=== PATIENT | male | born 1965 | race Caucasian/White ===

== ENCOUNTER 2018-08-02 17:37 | Inpatient (IN) | payer OTHER ==
[2018-08-02] MEDS ORDERED: Ondansetron HCl/PF 4 MG/2 ML Vial ONE (18:21)
[2018-08-02] MEDS ORDERED: Morphine 4 MG/ML VIAL ONE (18:21)
[2018-08-02 18:34] LABS: #Lymphocytes 0.5 thou/uL (1.20-3.40); #Monocytes 0.4 thou/uL (0.11-0.59); #Neutrophils 6.3 thou/uL (1.40-6.50); %Basophils 0.3 % (0.0-1.0); %Eosinophils 0.6 % (0.0-10.0); %Lymphocytes 6.3 % (21.0-51.0); %Monocytes 5.4 % (0.0-10.0); %Neutrophils 87.4 % (42.0-75.0); Hemoglobin 10.5 g/dL (14.0-18.0); Mean Corpuscular HGB CONC 32.7 g/dL (32.0-36.0); Mean Corpuscular Hemoglobin 30.3 pg (27.0-31.0); Mean Corpuscular Volume 92.8 fL (78.0-98.0); Mean Platelet Volume 7.6 fL (7.4-10.4); Platelet Count 116 thou/uL (130-400); RBC Distribution Width 12.6 % (11.5-14.5); Red Blood Cell (RBC) Count 3.47 mill/uL (4.70-6.10); White Blood Cell (WBC) Count 7.2 thou/uL (4.8-10.8)
[2018-08-02 19:04] LABS: ALT (SGPT) 17 U/L (8-55); AST (SGOT) 36 U/L (5-34); Alkaline Phosphatase 50 U/L (40-150); Anion Gap 22 mmol/L (10-20); BUN (Urea Nitrogen) 74 mg/dL (8.4-25.7); Bilirubin, Total 3.2 mg/dL (0.2-1.2); Calc. Creatinine Clearance 0 mL/min (70-130); Calcium 9.5 mg/dL (7.8-10.44); Carbon Dioxide 15 mmol/L (22-29); Chloride 97 mmol/L (98-107); Estimated GFR-MDRD 5; Globulin 5.4 g/dL (2.4-3.5); Glucose 135 mg/dL (70-105); Lipase 326 U/L (8-78); Potassium 5.8 mmol/L (3.5-5.1); Protein, Total 8.4 g/dL (6.0-8.3); Sodium 128 mmol/L (136-145)
--- NOTE | 2018-08-02 19:31 | PDOC.FPRHP ---
- History of Present Illness Chief Complaint: Abdominal Pain History of Present Illness: Mr Almazan is a 53yo male with pmh of Cirrhosis 2/2 Hep C and Alcohol abuse who presented to [facility] with 1 week hx of weakness, worsening tremors, abd pain and nausea/vomiting, there was concern for SBP vs hepatorenal syndrome so he was transferred to ED via EMS. Pt also endorses body aches. Pt follows with GI outpatient and has scheduled therapeutic paracentesis with the most recent being 07/29, they removed 6L. Prior to this his last paracentesis was 2 mo prior. Hx of drinking 1 pint of liquior per day but reports last drink was 14 days ago. Reports hx of withdrawal symptoms but no hx of seizures. Denies fever/ chills. He is accompanied by his friend who reports his mental status is at baseline but he seems much more fatigued than usual. ED Course: Morphine 6mg IV, Zofran 8mg IV - Allergies/Adverse Reactions Allergies Allergy/AdvReac Type Severity Reaction Status Date / Time No Known Drug Allergies Allergy Verified 08/02/18 22:23 - Home Medications Medication Instructions Recorded Confirmed Type Folic Acid 1 mg PO QAM 08/03/18 08/03/18 History Furosemide 40 mg PO QAM 08/03/18 08/03/18 History HYDROcodone/Ibuprofen [Ibudone] 1 tab PO Q6H PRN 08/03/18 08/03/18 History Lactulose 20 gm PO BID 08/03/18 08/03/18 History Ondansetron HCl [Zofran] 4 mg PO PRN PRN 08/03/18 08/03/18 History Pantoprazole Sodium 40 mg PO QAM 08/03/18 08/03/18 History Spironolactone 100 mg PO QAM 08/03/18 08/03/18 History hydrOXYzine HCl [Hydroxyzine HCl] 50 mg PO QID PRN 08/03/18 08/03/18 History - History PMHx: Alcohol Abuse, Tobacco Abuse, Cirrhosis 2/2 alcohol abuse & Hep C infection PSHx: None FHx: None Social: Currently smokes 1/2 pk/day, hx of 1 pint liquor per day, last drink 14 days ago, denies drug use - Review of Systems General: reports: weight/appetite/sleep changes, fatigue. denies: fever/chills Eyes: denies: eye pain, vision changes ENT: denies: nasal congestion, rhinorrhea Respiratory: denies: cough, congestion, shortness of breath Cardiovascular: reports: edema, orthopnea. denies: chest pain Gastrointestinal: reports: nausea, vomiting, abdominal pain Genitourinary: denies: dysuria, polyuria Skin: denies: rashes, lesions Musculoskeletal: reports: pain, stiffness Neurological: reports: weakness. denies: seizure - Vital signs BP: 152/91 HR: 87 RR: 17 Tmax: 98.1 Pox: 98% on RA Wt: 86.18kg - Physical Exam Constitutional: NAD -Constitutional: Appears malnourished, jaundiced, falling asleep while talking with him HEENT: PERRLA, oropharynx clear, other (mouth stained with peptobismol Scleral icterus) Neck: supple, trachea midline Heart: RRR, pulses present, other (1+ pitting edema to knees) Lungs: CTAB, no respiratory distress Abdomen: bowel sounds present, other (Abdomen mildy tender diffusely. Protuberant with fluid wave large umbilical hernia) Musculoskeletal: other (peripheral muscle atrophy) Neurological: no focal deficit Skin: capillary refill <2 seconds, other (jaundiced) Psychiatric: intact recent and remote memory, other (normal mood) FMR H&P: Results - Labs Result Diagrams: 08/03/18 04:17 08/03/18 04:17 Lab results: WBC 7.2 thou/uL (4.8-10.8) 08/02/18 18:13 Hgb 10.5 g/dL (14.0-18.0) L 08/02/18 18:13 Hct 32.2 % (42.0-52.0) L 08/02/18 18:13 MCV 92.8 fL (78.0-98.0) 08/02/18 18:13 Plt Count 116 thou/uL (130-400) L 08/02/18 18:13 Neutrophils % 87.4 % (42.0-75.0) H 08/02/18 18:13 Sodium 128 mmol/L (136-145) L 08/02/18 18:13 Potassium 5.8 mmol/L (3.5-5.1) H 08/02/18 18:13 Chloride 97 mmol/L (98-107) L 08/02/18 18:13 Carbon Dioxide 15 mmol/L (22-29) L 08/02/18 18:13 BUN 74 mg/dL (8.4-25.7) H 08/02/18 18:13 Creatinine 10.69 mg/dL (0.6-1.3) H 08/02/18 18:13 Glucose 135 mg/dL (70-105) H 08/02/18 18:13 Calcium 9.5 mg/dL (7.8-10.44) 08/02/18 18:13 Total Bilirubin 3.2 mg/dL (0.2-1.2) H 08/02/18 18:13 AST 36 U/L (5-34) H 08/02/18 18:13 ALT 17 U/L (8-55) 08/02/18 18:13 Alkaline Phosphatase 50 U/L (40-150) 08/02/18 18:13 Ammonia 76 umol/L (18-72) H 08/02/18 18:13 Serum Total Protein 8.4 g/dL (6.0-8.3) H 08/02/18 18:13 Albumin 3.0 g/dL (3.5-5.0) L 08/02/18 18:13 Lipase 326 U/L (8-78) H 08/02/18 18:13 FMR H&P: A/P - Problem List (1) Cirrhosis Current Visit: Yes Status: Acute Code(s): K74.60 - UNSPECIFIED CIRRHOSIS OF LIVER (2) Alcohol abuse Current Visit: Yes Status: Acute Code(s): F10.10 - ALCOHOL ABUSE, UNCOMPLICATED (3) Tobacco abuse Current Visit: Yes Status: Acute Code(s): Z72.0 - TOBACCO USE (4) Hepatorenal syndrome Current Visit: Yes Status: Acute Code(s): K76.7 - HEPATORENAL SYNDROME (5) Hyperkalemia Current Visit: Yes Status: Acute Code(s): E87.5 - HYPERKALEMIA (6) Normocytic anemia Current Visit: Yes Status: Acute Code(s): D64.9 - ANEMIA, UNSPECIFIED (7) Acute renal failure Current Visit: Yes Status: Acute (8) Pancreatitis Current Visit: Yes Status: Acute Code(s): K85.90 - ACUTE PANCREATITIS WITHOUT NECROSIS OR INFECTION, UNSP (9) Hyponatremia Current Visit: Yes Status: Acute Code(s): E87.1 - HYPO-OSMOLALITY AND HYPONATREMIA - Plan Acute Renal Failure - likely 2/2 hepatorenal syndrome - Nephrology, Dr Ritchie consulted from ED - Cr 10.69, BUN 74, GFR 5 - No record of baseline renal function - Strict I&O's - Consult GI in AM - Continue to monitor renal function with AM labs - Will admit to tele to monitor due to hyperkalemia Hyperkalemia - 5.8 - Ordered EKG - AM BMP Elevated Lipase - Pancreatitis vs 2/2 renal failure - 326 - Pt reports nausea and vomiting - Diet NPO, and treat symptomatically - Pain control with home Ibudone and Morphine PRN Cirrhosis 2/2 Alcohol abuse and Hep C - MELD: 32 - 52% 3mo mortality - Sees GI (Dr Cueto) outpt, last therapeutic paracentesis 07/29/18 - Consider therapeutic paracentesis tomorrow, low concern for SBP. No leukocytosis, pt afebrile and only mild abdominal pain that seems to be his baseline. - If pt develops worsening abd pain or becomes febrile overnight will preform diagnostic paracentesis and start antibiotics - GI consult in AM Elevated Ammonia - 76 - Unsure of pt's baseline mental status - Continue home lactulose - Will continue to monitor Normocytic Anemia - Hgb 10.5 - Will continue to monitor, can be followed outpatient Hyponatremia - 128 - Unknown baseline - Continue to monitor, AM CMP Alcohol Abuse - Reports last drink 14 days ago, no hx of w/d seizures in past - ASE protocol - Ativan PRN for withdrawal Tobacco Abuse - Encourage Cessation - Consider low dose Nicotine patch Code Status: DNR DVT ppx: SCDs FMR H&P: Upper Level - Pertinent history 53 y/o M w/ PMHx of Liver Cirrhosis 2/2 HCV and EtOH abuse presents from clinic for evaluation of abdominal pain, fatigue, nausea and vomiting over the past few days. Patient reportedly stopped drinking 14 days ago as well. Denies any hx of DTs. Denies any current withdrawal sxs. Endorses some minor abdominal pain. Denies any fevers, reports some chills. Patient with last paracentesis on 07/29 where 8L of fluid was removed. Patient reports he gets albumin with his paracentesis. Also w/ multiple medication changes at last GI visit 2 weeks ago ( Dr. Cueto). Has been taking lactulose 1-2x per day since then. - Pertinent findings BP 148/98 P 87 RR 18 Temp 98.1 DegF O2sat 99% on RA WBC 7.2 Hgb 10.5 Neut 87.4% Platelet 116 PT 18.6 PTT 25.9 INR 1.5 Na 128 K 5.8 Cl 97 CO2 15 BUN 74 Cr 10.69 Gluc 135 Uric acid 15.1 Bili - 3.4 NH4 - 76 Alb 3.0 Lipase - 326 Acute abdominal X-ray - NAD, ascites GEN: Jaundiced, NAD HEENT: Scleral icterus, MMM CARDS: RRR, 3/6 DREW LUSB, no rubs or gallops. PULM: CTA-B/l, no wheezes or rhonci GI: Soft, distention, fluid wave, mild tenderness to palpation diffusely, no rigidity, no guarding, BS x 4, umbilical hernia noted - Plan Date/Time: 08/02/181929 IJohan MD, have evaluated this patient and agree with findings/plan as outlined by international specialist resident. Pertinent changes/additions are listed here. 53 y/o M w/: 1) Acute Renal Failure likely 2/2 hepatorenal syndrome - Nephrology consulted from ER w/ patient started on IV albumin and D5W with NaHC03- - Will touch base with GI Dr. Cueto in the AM to see if he has lab work from his clinic to gauge patients baseline renal function as we have no current record of this - Will continue to monitor renal function w/ serial BMPs for improvement - Consult GI in the AM for further recommendations - No current hypotension noted - Monitor urine output w/ strict I/Os 2) Hyperkalemia 2/2 #1 - Patient given kayexalate per nephrology - K+ <6, will obtain EKG to r/o acute changes in setting of this - Will repeat in AM to re-eval 3) Elevated Lipase (pancreatitis vs renal failure) - Possibly elevated in setting of #1, however patient does have clinical symptoms suggestive of pancreatitis w/ elevation of his lipase on lab work - Will keep NPO for bowel rest and cont. w/ IV fluids per nephrology - PRN IV morphine for pain control 4) Liver Cirrhosis 2/2 HCV and EtOH abuse - MELD score of 32 based on todays labs giving patient a 52.6% 3 month estimated mortality - He has been getting therapeutic paracentesis w/ GI Dr. Cueto w/ last done on 07/29 and scheduled again next month - Patient has re-accumulated a large portion of the 6L which was removed at this time - Will plan to consult GI for further recommendations and possible paracentesis in the AM - Low suspicion for SBP at this time. Will defer diagnostic paracentesis to GI in the AM if they feel this is indicated. If patient develops leukocytosis, fever, or worsening abdominal pain will start on Rocephin for coverage and obtain ascetic fluid for analysis - Cont. w/ outpatient regimen w/ lactulose in setting of mildly elevated Ammonia on labs 5) Hx of EtOH abuse - Reported last drink 2 weeks ago w/ no current sxs of withdrawal - Will place on SHANTHI protocol to monitor CODE STATUS: DNR LOS: >2 midnights Diet: NPO Attending Addendum - Attending Addendum Date/Time: 08/03/18 1320 I personally evaluated the patient and discussed the management with Dr. Barreto. I agree with the History, Examination, Assessment and Plan documented above with any addition or exceptions noted below Briefly this is a 53 yo male with h/ o cirrhosis secondary to chronic Hep C and alcohol abuse sent from clinic due to increased lethargy and confusion. Also some h/o recent N/V. Denies any diarrhea, constipation. Minimal abdominal pain. denies any fever/chills. PMH/PSH /Meds/SH reviewed and agree with resident's documentation. Afebrile VSS. Exam repeated by me and agree with resident's findings. Labs: WBC= 7.2, H/H 10.5/ 32.2 -> 8.5/25.2, Plt= 92, GE=529, K=8.5 -> 5.1, Cl=97 CO2=19, BUN/Cr= 77/10.7, U/A-negative, NH4=78. A/P: 1) Hepatorenal syndrome- nephrology consulted and appreciate assitance; continue bicarb drip; monitor I/Os. Will notify patient's GI physician of admission and situation. 2) Encephalopathy- most likely combination of uremia and hepatic cause- continue lactulose and bicarb. Poor prognosis with development of renal failure. Will discuss with consultants/ patient regarding palliative care consult.
[2018-08-02 20:14] LABS: INR-International Normal Ratio 1.5; PTT 35.9 SEC (22.9-36.1); Prothrombin Time 18.6 SEC (12.0-14.7)
--- NOTE | 2018-08-02 20:15 | RAD ---
KUB AND UPRIGHT PA CHEST: 08/02/18 HISTORY: Abdominal pain, cirrhosis and alcohol abuse. Bowel gas pattern appears nonobstructive. There is a relative paucity of bowel gas present. There cou ld be ascites as the abdomen is of somewhat increase in density. No free air seen. PA CHEST: Heart size and mediastinum are within normal limits. The lungs are clear of any focal infiltrative pr ocess. There is arthritic changes of the spine and scoliotic change of the lumbar spine. IMPRESSION: Some increased density over the abdomen raising the possibility of ascites. POS: [facility]
[2018-08-02 21:11] LABS: Bilirubin Negative (Negative); Blood, Urine Negative (Negative); Clarity CLOUDY (Clear); Glucose, Urine (Dipstick) Negative (Negative); Leukocyte Negative (Negative); Nitrite Negative (Negative); Protein, Urine (Dipstick) Trace mg/dL (Neg-Trace); Specific Gravity, Urine 1.015 (1.002-1.036); Urobilinogen 0.2 mg/dL (0.2-1.0); pH, Urine 5.5 (5.0-9.0)
[2018-08-02] MEDS ORDERED: Ondansetron ODT 4 MG TAB PO PRN (22:52)
[2018-08-02 23:19] LABS: Magnesium 2.9 mg/dL (1.6-2.6); Phosphorus 6.2 mg/dL (2.3-4.7); Uric Acid 15.1 mg/dL (3.5-7.2)
[2018-08-02] MEDS: Sodium Bicarbonate 150 MEQ in Dextrose 5% in Water 1,000 ML IV SCH (23:20)
[2018-08-02] MEDS: Albumin 25% 25 GM/100 ML BOT IVPB SCH (23:20)
--- NOTE | 2018-08-03 00:14 | CON ---
DATE OF CONSULTATION: 08/02/2018 CONSULTING PHYSICIAN: Erma Mata M.D. REQUESTING PHYSICIAN: Dr. Sanders with the ER. REASON FOR CONSULTATION: Acute kidney injury and severe hyperkalemia. IMPRESSION: 1. Acute kidney injury. This is likely hepatorenal syndrome, type 1, in the context of end-stage li cj disease with a recent history of large volume paracentesis. 2. End-stage liver disease in the context of chronic hepatitis C. 3. Hyperkalemia, related to problem #1, compounded by continued potassium ingestion at home as well as spironolactone. 4. Metabolic acidosis, related to problem #1. 5. Combined hepatic and uremic encephalopathy. PLAN: 1. Patient is in grave condition and we will medically treat the hyperkalemia for now with bicarb-ba sed infusion as well as kayexalate and monitor the potassium closely. 2. Hepatorenal syndrome is not a great condition. I am unable to hemodialysis. However, if patient 's renal function continues to deteriorate as well as the hyperkalemia, this modality of treatment mi ght become indicated. Otherwise, the alternative is almost 100% fatal. 3. Renally dose all medications and avoid potentially nephrotoxic agents. 4. Discontinue potassium supplementation permanently and hold spironolactone for now. 5. It would be very tricky for this patient to be hydrated, as patient is at high sodium-avid state and will likely exacerbate his ascites. HISTORY OF PRESENT ILLNESS: This is a 53-year-old gentleman with end-stage liver disease in the cont ext of hepatitis C, who does get large volume paracentesis intermittently. The patient recently did undergo large volume paracentesis and has been on potassium supplementation for about 2 weeks. [facility] with obvious mental status change noted with creatinine above 10, potassiu m of 5.8 with evidence of metabolic acidosis and uremia and hepatic encephalopathy. As a result of t hese findings, a decision has been taken to involve Renal in the management of this case. PAST MEDICAL HISTORY: Significant for, 1. end-stage liver disease in the context of problem #2. 2. Hepatitis C. SOCIAL HISTORY: Could not be obtained from this patient with obvious mental status change. FAMILY HISTORY: Unobtainable. REVIEW OF SYSTEMS: Highly limited. The patient seems to be having some myoclonic jerks. LABORATORY INVESTIGATION: Significant for potassium of 5.8, sodium 128, bicarbonate of 15, BUN of 74 , and creatinine 10.69. PHYSICAL EXAMINATION: GENERAL: On examination, the patient was found to be jaundiced with dry oral mucosa, but overall hyp ervolemic. HEENT: Remarkable for jaundice. CARDIOVASCULAR SYSTEM: First and second heart sounds were heard. RESPIRATORY SYSTEM: Clear to auscultation. DIGESTIVE SYSTEM: Reviewed, distended abdomen with gross ascites. EXTREMITIES: Show mild peripheral edema. NEUROLOGIC EXAMINATION: Reviewed and the patient with myoclonic jerks, encephalopathy, but no latera lizing signs. LYMPHATICS: No peripheral lymphadenopathy. SUMMARY: This is a 53-year-old gentleman, who presented here and noted to have severe hepatorenal sy ndrome in the context of recent large volume paracentesis versus pancreatitis. Thank you for this consultation. We will follow along with you.
[2018-08-03] MEDS ORDERED: hydrOXYzine 25 MG TAB PO PRN (00:38)
[2018-08-03] MEDS ORDERED: Lorazepam 2 MG/ML VIAL SLOW IVP PRN (00:57)
[2018-08-03] MEDS: Albumin 25% 25 GM/100 ML BOT IVPB SCH ×4 (05:07→23:18)
[2018-08-03 05:50] LABS: ALT (SGPT) 15 U/L (8-55); AST (SGOT) 27 U/L (5-34); Albumin 2.9 g/dL (3.5-5.0); Alkaline Phosphatase 41 U/L (40-150); Anion Gap 19 mmol/L (10-20); BUN (Urea Nitrogen) 77 mg/dL (8.4-25.7); Bilirubin, Total 2.9 mg/dL (0.2-1.2); Calc. Creatinine Clearance 9 mL/min (70-130); Calcium 9.1 mg/dL (7.8-10.44); Carbon Dioxide 19 mmol/L (22-29); Chloride 97 mmol/L (98-107); Estimated GFR-MDRD 5; Globulin 4.2 g/dL (2.4-3.5); Glucose 126 mg/dL (70-105); Potassium 5.1 mmol/L (3.5-5.1); Protein, Total 7.1 g/dL (6.0-8.3); Sodium 130 mmol/L (136-145)
[2018-08-03 06:44] LABS: #Eosinphils 0.2 thou/uL (0.0-0.7); #Lymphocytes 0.8 thou/uL (1.20-3.40); #Monocytes 0.8 thou/uL (0.11-0.59); #Neutrophils 4.5 thou/uL (1.40-6.50); %Basophils 0.3 % (0.0-1.0); %Eosinophils 2.5 % (0.0-10.0); %Lymphocytes 13.3 % (21.0-51.0); %Monocytes 12.1 % (0.0-10.0); %Neutrophils 71.7 % (42.0-75.0); Hemoglobin 8.5 g/dL (14.0-18.0); Mean Corpuscular HGB CONC 33.7 g/dL (32.0-36.0); Mean Corpuscular Volume 91.9 fL (78.0-98.0); Mean Platelet Volume 8.6 fL (7.4-10.4); PLT Morphology Comment Appears Decreased; Platelet Count 92 thou/uL (130-400); RBC Distribution Width 12.9 % (11.5-14.5); Red Blood Cell (RBC) Count 2.75 mill/uL (4.70-6.10); White Blood Cell (WBC) Count 6.2 thou/uL (4.8-10.8)
--- NOTE | 2018-08-03 07:04 | PDOC.FM ---
- Subjective Subjective: Patient reports he is tired and would just like to get some rest. Denies any new complaint today. Catheter in place. Patient asked if he was dying and expresses fear of his disease and prognosis. - Objective MAR Reviewed: Yes Vital Signs & Weight: Vital Signs (12 hours) Temp Pulse Resp BP Pulse Ox 08/03/18 03:31 97.9 F 80 20 122/69 98 08/02/18 22:52 96.5 F L 82 18 147/73 H 98 Weight Weight 85.275 kg Result Diagrams: 08/03/18 04:17 08/03/18 04:17 Phys Exam - Physical Examination Constitutional: NAD (fatigued) HEENT: sclera anicteric Crackles auscultated and lower lung bases Cardiovascular: RRR, no significant murmur Gastrointestinal: positive bowel sounds Ascites, distended with fluid wave, minimal tenderness to palpation Musculoskeletal: no edema, pulses present Neurological: non-focal, moves all 4 limbs Psychiatric: A&O x 3 Dx/Plan (1) Acute renal failure Status: Acute (2) Alcohol abuse Code(s): F10.10 - ALCOHOL ABUSE, UNCOMPLICATED Status: Acute (3) Cirrhosis Code(s): K74.60 - UNSPECIFIED CIRRHOSIS OF LIVER Status: Acute (4) Hepatorenal syndrome Code(s): K76.7 - HEPATORENAL SYNDROME Status: Acute (5) Hyperkalemia Code(s): E87.5 - HYPERKALEMIA Status: Acute (6) Hyponatremia Code(s): E87.1 - HYPO-OSMOLALITY AND HYPONATREMIA Status: Acute (7) Normocytic anemia Code(s): D64.9 - ANEMIA, UNSPECIFIED Status: Acute (8) Tobacco abuse Code(s): Z72.0 - TOBACCO USE Status: Acute - Plan Plan: Acute Renal Failure, likely 2/2 hepatorenal syndrome - Nephrology, Dr Ritchie consulted from ED - Cr 10.69, BUN 74, GFR 5 - continue D5W + bicarb @ 75 - No record of baseline renal function - Strict I&O's, renally dose medications - Will consult GI today - Continue to monitor renal function with AM labs Hyperkalemia, improving - 5.8->5.1 - EKG stable - spironolactone held - AM BMP Cirrhosis 2/2 Alcohol abuse and Hep C - MELD: 32 - 52% 3mo mortality - Sees GI (Dr Cueto) outpt, last therapeutic paracentesis 07/29/18 - Appreciate GI recommendations - Low concern for SBP. No leukocytosis, pt afebrile and only mild abdominal pain that seems to be his baseline. - continue albumin Elevated Ammonia - 78 - Continue home lactulose - Will continue to monitor - A&Ox3 this am Elevated Lipase - Pancreatitis vs 2/2 renal failure - 326 - Pt initially reported nausea and vomiting, now resolved - Diet NPO, and treat symptomatically - Pain control with home Ibudone and Morphine PRN Normocytic Anemia - Hgb 10.5->8.5 - Will continue to monitor CBC Hyponatremia, improving - 128 -> 130 - Unknown baseline - Continue to monitor, AM CMP Alcohol Abuse - Reports last drink 14 days ago, no hx of w/d seizures in past - on folic acid - ASE protocol - Ativan PRN for withdrawal Tobacco Abuse - Encourage Cessation - Consider low dose Nicotine patch Code Status: DNR DVT ppx: SCDs, protonix
[2018-08-03] MEDS ORDERED: Furosemide 40 MG TAB PO SCH (09:00)
[2018-08-03] MEDS ORDERED: Spironolactone 100 MG TAB PO SCH (09:00)
[2018-08-03] MEDS: Folic Acid 1 MG TAB PO SCH (09:11)
[2018-08-03] MEDS: Sodium Bicarbonate 150 MEQ in Dextrose 5% in Water 1,000 ML IV SCH (17:02)
[2018-08-04] MEDS: Lorazepam 2 MG/ML VIAL SLOW IVP PRN ×3 (00:19→20:24)
[2018-08-04] MEDS ORDERED: Thiamine HCl 200 MG/2 ML VIAL IM SCH (00:30)
[2018-08-04] MEDS: Morphine 2 MG/ML SYRINGE SLOW IVP PRN ×2 (00:56→06:47)
[2018-08-04 01:17] LABS: Amphetamine Not Detected (NotDetected); Barbiturates Screen Not Detected (NotDetected); Benzodiazepine Screen Not Detected (NotDetected); Cocaine Metabolite Screen Not Detected (NotDetected); Medtox Control Line Valid? VALID (VALID); Medtox Reader # READER 4; Methadone Not Detected (NotDetected); Methamphetamine Not Detected (NotDetected); Opiate Screen Detected (NotDetected); Oxycodone Screen Not Detected (NotDetected); Phencyclidine (PCP) Not Detected (NotDetected); THC/Cannabinoid Screen Not Detected (NotDetected); Tricyclic Screen Not Detected (NotDetected)
[2018-08-04] MEDS: Octreotide Acetate 1,250 MCG in Sodium Chloride 0.9% 250 ML 250 ML IVPB SCH (01:21)
[2018-08-04] MEDS: Sodium Bicarbonate 150 MEQ in Dextrose 5% in Water 1,000 ML IV SCH (05:34)
[2018-08-04] MEDS: Albumin 25% 25 GM/100 ML BOT IVPB SCH ×4 (05:34→23:13)
--- NOTE | 2018-08-04 05:55 | PDOC.FM ---
- Subjective Subjective: Mr. Almazan notes he has been unable to get much rest. Looking forward to paracentesis to help him feel better. Concerned about dying. Denies CP, SOB, abdominal pain. Having regular BMs. Tolerated pudding and icecream well. Would like to advance diet. Had episode of agitation last night, given ativan. - Objective MAR Reviewed: Yes Vital Signs & Weight: Vital Signs (12 hours) Temp Pulse Resp BP BP Pulse Ox 08/04/18 04:00 98.2 F 75 16 128/77 128/77 95 08/04/18 00:00 98.2 F 84 16 114/70 114/70 93 L 08/03/18 20:00 98.4 F 83 16 132/80 132/80 95 Weight Admit Weight 85.275 kg Weight 87.543 kg I&O: 08/02/18 08/03/18 08/04/18 06:59 06:59 06:59 Intake Total 2187 Output Total 1275 Balance 912 Result Diagrams: 08/04/18 05:18 08/04/18 05:18 <Laila Jauregui - Last Filed: 08/04/18 11:12> - Objective Vital Signs & Weight: Vital Signs (12 hours) Temp Pulse Resp BP BP Pulse Ox 08/04/18 19:30 97.8 F 74 16 137/85 98 08/04/18 16:57 98.4 F 77 18 129/87 95 08/04/18 12:00 98.8 F 74 18 121/81 98 08/04/18 08:35 97.6 F 80 17 123/78 123/78 95 Weight Admit Weight 85.275 kg Weight 87.543 kg I&O: 08/03/18 08/04/18 08/05/18 06:59 06:59 06:59 Intake Total 2187 887 Output Total 1275 520 Balance 912 367 Result Diagrams: 08/04/18 05:18 08/04/18 05:18 <Bettie Negro - Last Filed: 08/04/18 20:07> Phys Exam - Physical Examination Constitutional: NAD HEENT: moist MMs, sclera anicteric JVD Respiratory: clear to auscultation bilateral Cardiovascular: RRR, no significant murmur Gastrointestinal: positive bowel sounds Ascites, distended with fluid wave. Mildly TTP. Prominent hernia. Musculoskeletal: no edema, pulses present Neurological: non-focal, moves all 4 limbs <Laila Jauregui - Last Filed: 08/04/18 11:12> Dx/Plan (1) Hepatorenal syndrome Code(s): K76.7 - HEPATORENAL SYNDROME Status: Acute (2) Acute renal failure Status: Acute (3) Alcohol abuse Code(s): F10.10 - ALCOHOL ABUSE, UNCOMPLICATED Status: Acute (4) Cirrhosis Code(s): K74.60 - UNSPECIFIED CIRRHOSIS OF LIVER Status: Acute (5) Hyperkalemia Code(s): E87.5 - HYPERKALEMIA Status: Acute (6) Hyponatremia Code(s): E87.1 - HYPO-OSMOLALITY AND HYPONATREMIA Status: Acute (7) Normocytic anemia Code(s): D64.9 - ANEMIA, UNSPECIFIED Status: Acute (8) Tobacco abuse Code(s): Z72.0 - TOBACCO USE Status: Acute - Plan Plan: Acute Renal Failure, 2/2 hepatorenal syndrome - Nephrology, Dr Ritchie consulted, appreciate recommendations - Cr 10.69->9.9. Kidney fxn not showing much improvement - continue D5W + bicarb @ 75 - hold nephrotoxic medications. Hold diuretics. - Strict I&O's, renally dose medications - Continue to monitor renal function with AM labs - Dr. Cueto consulted, appreciate recommendations: continue albumin, octreotide , midodrine Cirrhosis 2/2 Alcohol abuse and Hep C - MELD: 32, 52% 3mo mortality - Sees GI (Dr Cueto) outpt, last therapeutic paracentesis 07/29/18 - Plan for therapeutic paracentesis today - Appreciate GI recommendations - continue albumin, lactulose Hyperkalemia, resolved - 5.8->5.1->4.1 - EKG stable, on tele - spironolactone held - AM BMP Elevated Ammonia - 78 - Continue lactulose - Will continue to monitor - A&Ox3 this am Normocytic Anemia - Hgb 10.5->8.5->7.7 - Will continue to monitor CBC Hyponatremia, improving - 128 -> 130->133 - Unknown baseline - Continue to monitor, AM CMP Alcohol Abuse - Reports last drink 14 days ago, no hx of w/d seizures in past - on folic acid - ASE protocol - Ativan PRN Tobacco Abuse - Encourage Cessation - Consider low dose Nicotine patch Code Status: DNR DVT ppx: SCDs, protonix <Laila Jauregui - Last Filed: 08/04/18 11:12> (1) Cirrhosis Code(s): K74.60 - UNSPECIFIED CIRRHOSIS OF LIVER Status: Acute (2) Alcohol abuse Code(s): F10.10 - ALCOHOL ABUSE, UNCOMPLICATED Status: Acute (3) Tobacco abuse Code(s): Z72.0 - TOBACCO USE Status: Acute (4) Hepatorenal syndrome Code(s): K76.7 - HEPATORENAL SYNDROME Status: Acute (5) Hyperkalemia Code(s): E87.5 - HYPERKALEMIA Status: Acute (6) Normocytic anemia Code(s): D64.9 - ANEMIA, UNSPECIFIED Status: Acute (7) Acute renal failure Status: Acute (8) Pancreatitis Code(s): K85.90 - ACUTE PANCREATITIS WITHOUT NECROSIS OR INFECTION, UNSP Status: Acute (9) Hyponatremia Code(s): E87.1 - HYPO-OSMOLALITY AND HYPONATREMIA Status: Acute <Bettie Negro - Last Filed: 08/04/18 20:07> Attending Addendum - Attending Addendum Date/Time: 08/04/182004 I personally evaluated the patient and discussed the management with Dr. Jauregui I agree with the History, Examination, Assessment and Plan documented above with any addition or exceptions noted below- Patient c/o distension. Afebrile VSS. A/P: 1) Hepatorenal syndrome- appreciate nephrology and GI assistance. Continue albumin infusion. Minimal improvment in serum Cr. Patient considering dialysis. 2) Cirrhosis secondary to Hep C and alcohol- continue lactulose, octreotide and midodrine as per GI. <Bettie Negro - Last Filed: 08/04/18 20:07>
[2018-08-04 06:14] LABS: #Eosinphils 0.2 thou/uL (0.0-0.7); #Lymphocytes 0.8 thou/uL (1.20-3.40); #Monocytes 0.6 thou/uL (0.11-0.59); #Neutrophils 2.9 thou/uL (1.40-6.50); %Basophils 0.6 % (0.0-1.0); %Eosinophils 4.2 % (0.0-10.0); %Lymphocytes 17.7 % (21.0-51.0); %Monocytes 13.3 % (0.0-10.0); %Neutrophils 64.3 % (42.0-75.0); ALT (SGPT) 11 U/L (8-55); AST (SGOT) 21 U/L (5-34); Albumin 3.4 g/dL (3.5-5.0); Alkaline Phosphatase 33 U/L (40-150); Anion Gap 18 mmol/L (10-20); BUN (Urea Nitrogen) 75 mg/dL (8.4-25.7); Bilirubin, Total 3.1 mg/dL (0.2-1.2); Calc. Creatinine Clearance 10 mL/min (70-130); Carbon Dioxide 22 mmol/L (22-29); Chloride 97 mmol/L (98-107); Estimated GFR-MDRD 5; Globulin 3.5 g/dL (2.4-3.5); Glucose 138 mg/dL (70-105); Hemoglobin 7.7 g/dL (14.0-18.0); Mean Corpuscular HGB CONC 33.5 g/dL (32.0-36.0); Mean Corpuscular Hemoglobin 30.6 pg (27.0-31.0); Mean Corpuscular Volume 91.3 fL (78.0-98.0); Mean Platelet Volume 7.9 fL (7.4-10.4); Platelet Count 84 thou/uL (130-400); Potassium 4.1 mmol/L (3.5-5.1); Protein, Total 6.9 g/dL (6.0-8.3); RBC Distribution Width 12.6 % (11.5-14.5); Red Blood Cell (RBC) Count 2.51 mill/uL (4.70-6.10); Sodium 133 mmol/L (136-145); White Blood Cell (WBC) Count 4.5 thou/uL (4.8-10.8)
--- NOTE | 2018-08-04 06:52 | PRG ---
DATE OF SERVICE: 08/03/2018 SUBJECTIVE: The patient is seen and examined with following: OBJECTIVE: VITAL SIGNS: Blood pressure 132/80, pulse , O2 saturation 95% on room air, afebrile. HEENT: Unremarkable. CARDIOVASCULAR: First and second heart sounds were heard. DIGESTIVE: Revealed a distended abdomen. EXTREMITIES: No gross edema. SKIN: Revealed the patient that is jaundiced. LABORATORY INVESTIGATION: Showed a creatinine of 10.7, BUN of 77. Sodium 130, bicarbonate of 19, po tassium of 5.1. IMPRESSION: 1. Hepatorenal syndrome in the context of #2. 2. End-stage liver disease. 3. Metabolic acidosis, improving. 4. Hyperkalemia, resolved. PLAN: The patient is still on renal supportive measures. However, if no significant improvement, oren boudreaux is willing to consider temporary hemodialysis. Electrolytes as mentioned to hold off the low d ose, tomorrow to reevaluate the renal function possibility of this regard. The patient to be r eevaluated within 24 hours to identify if there is any need for renal replacement therapy. Of note, hepatorenal syndrome is not a good condition to be treated with hemodialysis. CONDITION: The patient still remains guarded.
--- NOTE | 2018-08-04 06:54 | CON ---
DATE OF CONSULTATION: 08/03/2018 REASON FOR CONSULTATION: Cirrhosis with possible hepatorenal syndrome. CONSULTING PHYSICIAN: Laila Jauregui DO HISTORY OF PRESENT ILLNESS: The patient is a 53-year-old male with past medical history of tobacco a buse, alcohol abuse, chronic hepatitis C infection and cirrhosis complicated by ascites, jaundice, lo wer extremity edema, hepatic encephalopathy, chronic renal insufficiency, presenting with complaints of weakness, tremor, and worsening abdominal pain. The patient had been undergoing workup related to his chronic hepatitis C and resultant cirrhosis of the liver with his most [facility]. At that time per his labs, he had a MELD score of 27 based on a worsening creatinine of 2.8, while on significant diuretic management. The patient's bumetanide was subsequently disconti nued with continuation of the spironolactone and furosemide as part of management for his ascites wit h plans to repeat the chemistry in 1 week for reevaluation of his creatinine at that time. A full li cj workup was then performed. The patient was also scheduled for large volume paracentesis for whic h approximately 6 L of fluid were withdrawn. However, over the last week he had worsening symptoms o f weakness, tremor, abdominal pain and nausea and vomiting that ultimately brought him to his primary care call office. Given the presenting symptoms, there was concern for hepatorenal syndrome, so he was ultimately transferred to [facility] for further evaluation. Upon evaluation of his c hemistry on admission, he was noted to have a significantly elevated creatinine and worsening for hep atorenal syndrome who was also admitted to the hospital for treatment. At the time of admission, he states that his last drink of alcohol was approximately 2 weeks previously. Currently, he states shanthi t he continues to have increased lower quadrant abdominal pain characterized as an intermittent achin g type sensation that will reach a severity of approximately 4-5/10 in severity. He also has increas ing anxiety/paranoia associated with his diagnosis of end-stage liver disease and worsening MELD scor e concerning for impending liver failure and in light of possible hepatorenal syndrome his ultimate m ortality. He has been having approximately 2 semisolid bowel movements per day while taking lactulos e 30 mL b.i.d. with clearing of his sensorium and no evidence of hepatic encephalopathy on clinical e xamination, despite mildly elevated ammonia on serologies. As part of the treatment for possible hepatorenal syndrome, he has been receiving albumin infusion IV for the last 24 hours of approximately 100 grams per day as well as holding of the diuretics during this particular time. He has also been receiving gentle IV fluid hydration in an attempt to restore perfusion to the kidneys and ultimately stave off hepatorenal syndrome. Currently, he denies any benji sea, vomiting, fevers, chills, GI bleeding, dysphagia or odynophagia. REVIEW OF SYSTEMS: A 10-category review of systems was obtained with all responses negative except f or the pertinent positives as listed in the HPI. PAST MEDICAL HISTORY: As per HPI. PAST SURGICAL HISTORY: Hiatal hernia surgery, cataract surgery. FAMILY HISTORY: Denies any GI malignancies. SOCIAL HISTORY: Denies any illicit drug or alcohol use, currently smokes approximately one half pack per day. OUTPATIENT MEDICATIONS: Reviewed. ALLERGIES: No known drug allergies. PHYSICAL EXAMINATION: VITAL SIGNS: Temperature 98.2, pulse 84, blood pressure 114/70, respiratory rate 16, satting 93% on room air. GENERAL: Patient is lying in bed in no acute distress. He is alert and oriented x4, somewhat anxiou s about his current health status. NECK: Supple. No JVD noted. Mild to moderate scleral icterus noted bilaterally. CARDIOVASCULAR: Regular rate and rhythm with no discernible murmurs, gallops or rubs. LUNGS: Clear to auscultation bilaterally with no discernible wheezes or rales. ABDOMINAL: Normoactive bowel sounds. The abdomen was mildly tense to palpation, but not totally ten se, tenderness to palpation in all the abdominal quadrants, especially of the lower abdominal quadran ts with significant abdominal distention with positive shifting dullness. EXTREMITIES: 1+/2+ bilateral lower extremity edema extending to the knees. LABORATORY DATA: CBC with a white blood cell count of 6.2, hemoglobin 8.5, hematocrit 25.2, platelet s 92. INR of 1.5. Chemistry with a sodium of 130, potassium 5.1, chloride 97, CO2 19, BUN 77, creat inine 10.7, glucose 126, AST 27, ALT 15, alkaline phosphatase 41, total bilirubin 2.9, ammonia 78, li pase 326. Urinalysis negative for infection. Calculation of his MELD score at approximately 31. IMAGING DATA: Acute abdominal series obtained on 08/02/2018 showed the heart size, mediastinum withi n normal limits. The lungs were clear of any focal infiltrative process with some increased density over the abdomen, raising the possibility of ascites. There was no evidence of free air. ASSESSMENT AND PLAN: The patient is a 53-year-old male with past medical history of chronic hepatiti s C infection and cirrhosis complicated by ascites, lower extremity edema and hepatic encephalopathy, presenting with worsening chronic renal insufficiency with acute on chronic renal failure, concernin g for hepatorenal syndrome. Hepatorenal syndrome. The patient is presenting with worsening renal function over the last 1-2 week s while on diuretic therapy as part of management for his worsening ascites. He underwent a paracent esis approximately 1 week ago with approximately 6 L of fluid removed at that time; however, with dis continuation of his diuretics and administration of albumin 100 g daily, his creatinine remains relat ively unchanged. RECOMMENDATIONS: 1. I would continue to hold any diuretic management at this time given the possibility of worsening renal function with administration. 2. We would continue to trend chemistry daily for further monitoring of possible hepatorenal syndrom e. 3. We would continue administration of albumin 100 g daily. 4. We will add octreotide drip to his regimen in an effort to improve splanchnic response. 5. We will add midodrine 7.5 mg t.i.d. to facilitate increased renal perfusion. 6. We would avoid any NSAIDs including Vicoprofen (currently on the patient's chart). Ascites. The patient is presenting with a prior history of hepatic ascites characterizes significant ly distended abdomen and prior ascitic fluid obtained that was not indicative of spontaneous bacteria l peritonitis. As an outpatient, he was moderately responding to diuretic management, but was not ad herent to a lower sodium diet at the most recent clinic visit. Currently, with a significantly diste nded abdomen that is not tense to palpation, but with a significant umbilical hernia. At this time, the patient would be made more comfortable with repeat therapeutic paracentesis. RECOMMENDATIONS: 1. I will place an order for a repeat therapeutic paracentesis with labs drawn to evaluate for possi ble spontaneous bacterial peritonitis. 2. Continue to hold diuretics in light of possible hepatorenal syndrome. Cirrhosis. The patient is presenting with a history of cirrhosis with the most likely etiology being either chronic alcohol abuse versus chronic hepatitis C or a combination of the 2. Currently, with decompensated liver disease with a MELD score of approximately 31 and Child-Burns classification C kathleen tolbert carries with it an approximate 50%, 90-day mortality. CT scan of the liver performed on 8 showed no evidence of hepatocellular carcinoma/hepatoma. At the previous office visit, he was subs equently referred for evaluation in the liver transplant center in [place]. He was subsequently elba ed given his insurance status with Medicaid. At this point, if he were to be referred for liver s[place] splantation he would need to be transferred to [place] for further management/evaluation for this condition. RECOMMENDATIONS: We would contact transfer center for possible transfer to the hospital in [place] for evaluation for urgent liver transplantation in light of possible hepatorenal syndrome. Hepatic encephalopathy. The patient initially presented to the most recent office visit with memory lapses while on lactulose 15 mL b.i.d. However, with the increase in lactulose 30 mL b.i.d., he is h aving approximately 2-3 semisolid bowel movements per day with clearing of his sensorium/mental statu s clinically. RECOMMENDATIONS: I would continue lactulose 30 mL b.i.d. with the plan to have approximately 3-4 semisolid bowel movem ents per day for hepatic encephalopathy. We will continue to follow. Please call with any additional questions.
[2018-08-04] MEDS ORDERED: Midodrine HCl 5 MG TAB PO SCH (09:00)
[2018-08-04] MEDS ORDERED: Folic Acid 1 MG TAB PO SCH (09:00)
[2018-08-04] MEDS: Folic Acid 1 MG TAB PO SCH (09:30)
[2018-08-04] MEDS: Midodrine HCl 5 MG TAB PO SCH ×3 (09:30→20:24)
[2018-08-04] MEDS: Multivitamin W/ Minerals 1 TAB PO SCH (09:30)
[2018-08-04] MEDS: Ondansetron ODT 4 MG TAB PO PRN ×3 (09:49→23:14)
[2018-08-04 10:29] LABS: Prothrombin Time 22.8 SEC (12.0-14.7)
--- NOTE | 2018-08-04 10:38 | ULT ---
LIMITED ABDOMINAL ULTRASOUND: Date: 08/04/18 INDICATION: Hepatic ascites. FINDINGS: There is a moderate volume of diffuse ascites seen involving the right and left abdomen. Interspersed loops of bowel are present. IMPRESSION: Moderate volume of abdominal ascites. POS: [facility]
[2018-08-04] MEDS: Morphine 4 MG/ML VIAL SLOW IVP PRN ×2 (16:43→23:13)
--- NOTE | 2018-08-05 00:58 | PRG ---
DATE OF SERVICE: 08/04/2018 REASON FOR CONSULTATION: Cirrhosis with possible hepatorenal syndrome. SUBJECTIVE: Overnight, the patient did have some increased agitation requiring the use of Ativan for anxiolytic purposes. This morning, he does have worries and anxiety, concerning his current clinica l status and possible impending . Otherwise, he denies any nausea, vomiting, fevers, chills, GI bleeding, odynophagia, or dysphagia. He does continue to have some increased lower abdominal pain r elated to the pressure of his abdomen, but he is scheduled for possible paracentesis later today. OBJECTIVE: VITAL SIGNS: Temperature 97.8, pulse 74, blood pressure 147/65, respiratory rate 16, satting 98% on room air. GENERAL: Patient is lying in bed in no acute distress. He is alert and oriented x4. CARDIOVASCULAR: Regular rate and rhythm. RESPIRATORY: Clear to auscultation bilaterally. ABDOMEN: Normoactive bowel sounds. The abdomen was significantly distended with tenderness to palpa tion in all abdominal quadrants, especially the lower abdominal quadrants. Positive shifting dullnes s consistent with ascites. EXTREMITIES: 1+/2+ bilateral lower extremity edema extending to bilateral knees. LABORATORY DATA: CBC with a white blood cell count of 4.5, hemoglobin 7.7, hematocrit 23, platelets 84,000. Chemistry with sodium of 133, potassium 4.1, chloride 97, CO2 of 22, BUN 75, creatinine 9.93 , glucose 138, AST 21, ALT 11, alkaline phosphatase 33, total bilirubin 3.1. Calculated MELD score a t approximately 31. IMAGING DATA: No current GI imaging is available for review. ASSESSMENT AND PLAN: The patient is a 53-year-old male with past medical history of chronic hepatiti s C infection and cirrhosis complicated by ascites, lower extremity edema, and hepatic encephalopathy , presenting with worsening chronic renal insufficiency, concerning for hepatorenal syndrome. Hepatorenal syndrome: The patient is presenting with worsening renal function over the last 1-2 week s while on diuretic therapy as part of management of his worsening ascites. He did undergo a paracen tesis approximately 1 week ago with approximately 6 liters of fluid removed, but continues to have si gnificant abdominal distention consistent with increased ascites. However, on this admission, he was noted to have significantly elevated both BUN and creatinine, concerning for acute renal failure. A ll of his diuretics were subsequently discontinued with the administration of albumin 100 grams daily . He was subsequently started on octreotide drip yesterday as well as midodrine 7.5 mg t.i.d. with a mild decrease in both BUN and creatinine. While I am hopeful that this would continue to downtrend with improvement of his renal function, it may not necessarily be indicative of response to therapy, which will be seen within the next 24-48 hours. Recommendations: 1. I would continue to hold any diuretic management at this time, given the possibility of hepatoren al syndrome. 2. Continue to trend chemistries daily. 3. Continue administration of albumin 100 grams daily. 4. Continue both octreotide drip and midodrine 7.5 mg t.i.d. to facilitate renal perfusion. 5. We would avoid any NSAIDs or potentially renal toxic medications. Ascites: The patient is presenting with a prior history of hepatic ascites characterized by signific ant distended abdomen, but without any prior history of spontaneous bacterial peritonitis, now with w orsening of his abdominal distention during this admission, which could be secondary to the IV fluid administration and noncompliance of a low-salt diet as an outpatient. Recommendations: 1. We would repeat therapeutic paracentesis with labs for evaluation of possible SBP. 2. Continue to hold diuretics in light of possible hepatorenal syndrome. Cirrhosis: The patient is presenting with a history of cirrhosis with the most likely etiology being chronic alcohol abuse versus chronic hepatitis C or a combination of the two. Currently with a deco mpensated liver disease with a MELD score of approximately 31 and Child-Burns classification C which c arries with it and approximately 50%, 90-day mortality. Given his elevated MELD score and poor 90-da y prognosis, transferring the patient to a liver transplant center in [place] would be preferable . Recommendations: We would consider contacting a transplant center in [place] for transferring the patient for evaluation for urgent liver transplantation in light of possible hepatorenal syndrom e. Hepatic encephalopathy: His most recent office visit with memory lapses while on lactulose 15 mL b.i .d. However, he was subsequently increased to 30 mL b.i.d. and has been able to maintain fairly norm al cognition while on this therapy, having approximately 2-3 semisolid bowel movements per day. Arley mmendations: Continue lactulose 30 mL b.i.d. with the plan to have approximately 3-4 semisolid bowel movements per day for his hepatic encephalopathy. We will continue to follow. Please call with any questions.
[2018-08-05] MEDS: Octreotide Acetate 1,250 MCG in Sodium Chloride 0.9% 250 ML 250 ML IVPB SCH (02:44)
[2018-08-05] MEDS: Sodium Bicarbonate 150 MEQ in Dextrose 5% in Water 1,000 ML IV SCH (02:44)
[2018-08-05] MEDS: Lorazepam 2 MG/ML VIAL SLOW IVP PRN ×2 (02:50→18:42)
--- NOTE | 2018-08-05 05:57 | PDOC.FM ---
- Subjective Subjective: Pt AOx3 this morning. Reports some pain in his abdomen from the ascites. - Objective Vital Signs & Weight: Vital Signs (12 hours) Temp Pulse Resp BP BP Pulse Ox 08/05/18 04:00 134/84 08/05/18 03:15 97.4 F L 67 19 134/84 96 08/05/18 00:00 131/80 08/04/18 23:14 98.2 F 71 18 130/81 95 08/04/18 20:24 98 08/04/18 20:00 147/65 H 08/04/18 19:30 97.8 F 74 16 137/85 98 Weight Admit Weight 85.275 kg Weight 87.543 kg I&O: 08/03/18 08/04/18 08/05/18 06:59 06:59 06:59 Intake Total 2187 2307 Output Total 1275 1220 Balance 912 1087 Result Diagrams: 08/05/18 05:13 08/05/18 05:13 Phys Exam - Physical Examination Constitutional: NAD HEENT: PERRLA, moist MMs Neck: no nodes, no JVD Respiratory: no wheezing, clear to auscultation bilateral Cardiovascular: RRR, no significant murmur Gastrointestinal: positive bowel sounds extremely distended Musculoskeletal: no edema, pulses present Psychiatric: normal affect, A&O x 3 Dx/Plan (1) Acute renal failure Status: Acute (2) Alcohol abuse Code(s): F10.10 - ALCOHOL ABUSE, UNCOMPLICATED Status: Chronic (3) Cirrhosis Code(s): K74.60 - UNSPECIFIED CIRRHOSIS OF LIVER Status: Acute (4) Hepatorenal syndrome Code(s): K76.7 - HEPATORENAL SYNDROME Status: Acute (5) Hyperkalemia Code(s): E87.5 - HYPERKALEMIA Status: Acute (6) Hyponatremia Code(s): E87.1 - HYPO-OSMOLALITY AND HYPONATREMIA Status: Acute (7) Normocytic anemia Code(s): D64.9 - ANEMIA, UNSPECIFIED Status: Chronic (8) Pancreatitis Code(s): K85.90 - ACUTE PANCREATITIS WITHOUT NECROSIS OR INFECTION, UNSP Status: Acute (9) Tobacco abuse Code(s): Z72.0 - TOBACCO USE Status: Acute - Plan Plan: Acute Renal Failure, 2/2 hepatorenal syndrome - Nephrology, Dr Ritchie consulted, appreciate recommendations - Cr 10.69->8.22 - continue D5W + bicarb @ 75 - hold nephrotoxic medications. Hold diuretics. - Strict I&O's, renally dose medications - Continue to monitor renal function with AM labs - Dr. Cueto consulted, appreciate recommendations: continue albumin, octreotide , midodrine, lactulose; hold diuretics, avoid NSAIDs Cirrhosis 2/2 Alcohol abuse and Hep C - MELD: 32, 52% 3mo mortality - Sees GI (Dr Cueto) outpt, last therapeutic paracentesis 07/29/18 - therapeutic paracentesis today if INR 2 or less - Appreciate GI recommendations - continue albumin, lactulose Hyperkalemia, resolved - 5.8->5.1->4.1 -> 3.7 - EKG stable, on tele - spironolactone held - AM BMP Elevated Ammonia - 78 - Continue lactulose - Will continue to monitor - A&Ox3 Normocytic Anemia - Hgb 10.5->8.5->7.7 ->7.8 - Will continue to monitor CBC Hyponatremia, resolved - 128 -> 130->133 -> 135 - Unknown baseline - Continue to monitor, AM CMP Alcohol Abuse - Reports last drink 14 days ago, no hx of w/d seizures in past - on folic acid - ASE protocol - Ativan PRN - UDS neg (UDS positive for opiates but pt received morphine here prior to draw) Tobacco Abuse - Encourage Cessation - Consider low dose Nicotine patch Code Status: DNR DVT ppx: SCDs, protonix
[2018-08-05 06:02] LABS: #Eosinphils 0.2 thou/uL (0.0-0.7); #Lymphocytes 0.6 thou/uL (1.20-3.40); #Monocytes 0.5 thou/uL (0.11-0.59); #Neutrophils 2.7 thou/uL (1.40-6.50); %Basophils 0.3 % (0.0-1.0); %Eosinophils 4.7 % (0.0-10.0); %Lymphocytes 15.5 % (21.0-51.0); %Monocytes 13.4 % (0.0-10.0); %Neutrophils 66.1 % (42.0-75.0); Hemoglobin 7.8 g/dL (14.0-18.0); Mean Corpuscular HGB CONC 31.7 g/dL (32.0-36.0); Mean Corpuscular Hemoglobin 29.2 pg (27.0-31.0); Mean Corpuscular Volume 91.8 fL (78.0-98.0); Mean Platelet Volume 7.3 fL (7.4-10.4); Platelet Count 85 thou/uL (130-400); RBC Distribution Width 12.5 % (11.5-14.5); Red Blood Cell (RBC) Count 2.67 mill/uL (4.70-6.10); White Blood Cell (WBC) Count 4.1 thou/uL (4.8-10.8)
[2018-08-05 06:06] LABS: INR-International Normal Ratio 2.1; Prothrombin Time 23.3 SEC (12.0-14.7)
[2018-08-05 06:13] LABS: ALT (SGPT) 7 U/L (8-55); AST (SGOT) 17 U/L (5-34); Albumin 3.7 g/dL (3.5-5.0); Alkaline Phosphatase 31 U/L (40-150); Anion Gap 16 mmol/L (10-20); BUN (Urea Nitrogen) 66 mg/dL (8.4-25.7); Calc. Creatinine Clearance 13 mL/min (70-130); Calcium 9.1 mg/dL (7.8-10.44); Carbon Dioxide 25 mmol/L (22-29); Chloride 98 mmol/L (98-107); Estimated GFR-MDRD 7; Glucose 131 mg/dL (70-105); Potassium 3.7 mmol/L (3.5-5.1); Protein, Total 6.7 g/dL (6.0-8.3); Sodium 135 mmol/L (136-145)
[2018-08-05] MEDS: Morphine 4 MG/ML VIAL SLOW IVP PRN ×3 (09:18→22:15)
[2018-08-05] MEDS: Folic Acid 1 MG TAB PO SCH (10:17)
[2018-08-05] MEDS: Midodrine HCl 5 MG TAB PO SCH ×3 (10:19→20:12)
[2018-08-05] MEDS: Multivitamin W/ Minerals 1 TAB PO SCH (10:20)
--- NOTE | 2018-08-05 11:48 | PDOC.EVN ---
Event Note - Event Note Event Note: IR says they will not perform paracentesis until patient's INR is 1.9 or lower. Pt INR this morning is 2.0. Adela Johnson MD
--- NOTE | 2018-08-05 14:40 | ADD-PRG ---
DATE OF SERVICE: 08/05/2018 This is an addendum to the note of Dr. Diamante Johnson. Mr. Almazan is a very unfortunate 53-year-old man with end stage liver failure and cirrhosis. This mo rning, he is very lethargic and has positive asterixis. I believe his management will be palliative and comfort care only. This gentleman will likely not to survive many more days of weeks. Evidently, attempts were made to send him for liver transplant, but he did not qualify. We will continue to follow along with Dr. Jami cordova, who also sees him as an outpatient. Prognosis remains extremely poor.
[2018-08-05] MEDS ORDERED: Sodium Bicarbonate 2.5 MEQ/5 ML VIAL ONE (15:07)
[2018-08-05] MEDS ORDERED: Lidocaine 1% PF 5 ML VIAL ONE (15:08)
--- NOTE | 2018-08-05 17:19 | ULT ---
ULTRASOUND GUIDED PARACENTESIS: HISTORY: Hepatic ascites. COMPARISON: Ultrasound from the prior day. TECHNIQUE/FINDINGS: The patient was brought to the ultrasound suite. All questions were answered. The patient's right lower quadrant was prepped and draped in a normal sterile fashion, and 4 mL of bu ffered Lidocaine was instilled into the superficial and deep soft tissues. A small dermatotomy was m scott, after adequate anesthesia. Using a 5 Thai Yueh needle, the peritoneal space was accessed, and 6 L of fluid was removed. The patient tolerated the procedure well. IMPRESSION: Technically successful ultrasound guided paracentesis. POS: [facility]
--- NOTE | 2018-08-05 20:31 | PRG ---
DATE OF SERVICE: 08/05/2018 SUBJECTIVE: The patient was seen and examined, seems to be feeling a little bit better today. OBJECTIVE: VITAL SIGNS: Afebrile with temperature 97.6, pulse 72, respiratory rate 16, O2 sat 96% on room air w ith blood pressure 130/82. HEENT: Unremarkable. CARDIOVASCULAR: First and second heart sounds were heard. RESPIRATORY: Clear to auscultation. DIGESTIVE: Revealed a distended abdomen with ascites. EXTREMITIES: Noted for edema. SKIN: . LABORATORY INVESTIGATIONS: Showed a hemoglobin of 7.8. Chemistry showed a creatinine down to 8.22 w ith BUN of 66. IMPRESSION: 1. Acute kidney injury likely in the context of hepatorenal syndrome type 1. 2. End-stage liver disease. 3. Anemia of critical illness. PLAN: 1. Discontinue bicarbonate based infusion in this patient. 2. Patient to be on low salt diet to avoid worsening abdominal distention. 3. Further management will be dependent on this patient with their recommendation.
[2018-08-05] MEDS: Albumin 25% 25 GM/100 ML BOT IVPB SCH (22:15)
--- NOTE | 2018-08-05 22:22 | PRG ---
DATE OF SERVICE: 08/05/2018 REASON FOR CONSULTATION: Cirrhosis with possible hepatorenal syndrome. SUBJECTIVE: The patient states that he slept better last night and was a little less anxious this mo rning regarding his current clinical status. He would like to get the paracentesis done today with tripp tavares for Interventional Radiology to do this later on this afternoon. Currently, the patient denies any nausea, vomiting, fevers, chills, GI bleeding, odynophagia, or dysphagia. He does continue to winter ve some increased lower abdominal pain related to the increased ascitic fluid. OBJECTIVE: VITAL SIGNS: Temperature 97.6, pulse 72, blood pressure 130/82, respiratory rate 16, satting 96% on room air. GENERAL: The patient is lying in bed in no acute distress. Alert and oriented x4. CARDIOVASCULAR: Regular rate and rhythm. RESPIRATORY: Clear to auscultation bilaterally. ABDOMEN: Normoactive bowel sounds. Mild tenderness to palpation in all abdominal quadrants. The ab domen is still significantly distended with positive shifting dullness consistent with ascites. EXTREMITIES: 1+/2+ bilateral lower extremity edema extending to his knees. LABORATORY DATA: CBC with white blood cell count of 4.1, hemoglobin 7.8, hematocrit 24.6, platelets 85. INR 2.0. Chemistry with sodium of 135, potassium 3.7, chloride 98, CO2 25, BUN 66, creatinine 8 .22, glucose 131. IMAGING DATA: No current GI imaging is available for review. ASSESSMENT AND PLAN: The patient is a 53-year-old male with past medical history of chronic hepatiti s C and cirrhosis complicated by ascites, lower extremity edema and hepatic encephalopathy, presentin g with worsening renal insufficiency concerning for hepatorenal syndrome type 1. HEPATORENAL SYNDROME TYPE 1: The patient is presenting with worsening renal function over the last 1 -2 weeks while on diuretic therapy as part of management of his worsening ascites. During with the a dministration of octreotide drip, midodrine, albumin infusion, he has had improvement in his renal fu nction with a creatinine down trending from 10.8-8.2. At this time, he seems to be responding to ryan atment and again I am hopeful this trend will continue but is not necessarily indicative of response to therapy. RECOMMENDATIONS: 1. Continue to hold any diuretic management. 2. Trend chemistries daily. 3. Continue albumin infusion of 100 grams daily for the next 24-48 hours. 4. Continue octreotide drip and midodrine to facilitate renal perfusion. 5. We will continue to avoid any NSAIDs or potentially renal toxic medications. ASCITES: The patient is presenting with a prior history of significant hepatic ascites characterized by significantly distended abdomen. He underwent paracentesis earlier today with withdrawal of appr oximately 6 liters of ascitic fluid with labs characterizing the ascites still pending at this time. RECOMMENDATIONS: 1. We will follow up on the labs drawn during paracentesis today. 2. Continue to hold diuretics in light of possible hepatorenal syndrome. CIRRHOSIS: The patient is presenting with a history of cirrhosis with currently decompensated liver disease with a calculated MELD score of 33 and Child-Burns classification C which carries with it 60%- 66%, 90-day mortality. Given this continued elevated MELD score and poor 90-day prognosis transferri ng the patient to a liver transplant center in [place] would be preferable. RECOMMENDATIONS: I would recommend contacting a transplant center in [place] for evaluation of t he patient's case and possible urgent liver transplantation in light of worsening renal function and worsening MELD score. HEPATIC ENCEPHALOPATHY: The patient has been responding well during this hospitalization with admini stration of lactulose regarding memory lapses and loss of sensorium. RECOMMENDATIONS: Continue lactulose 30 mL b.i.d. with the target to have 3-4 semisolid bowel movemen ts per day. We will continue to follow. Please call with any questions.
[2018-08-06] MEDS: Morphine 4 MG/ML VIAL SLOW IVP PRN ×2 (02:19→11:28)
[2018-08-06] MEDS: Octreotide Acetate 1,250 MCG in Sodium Chloride 0.9% 250 ML 250 ML IVPB SCH (02:19)
[2018-08-06 04:56] LABS: #Eosinphils 0.1 thou/uL (0.0-0.7); #Lymphocytes 0.7 thou/uL (1.20-3.40); #Monocytes 0.7 thou/uL (0.11-0.59); #Neutrophils 3.2 thou/uL (1.40-6.50); %Basophils 0.5 % (0.0-1.0); %Eosinophils 2.8 % (0.0-10.0); %Monocytes 13.8 % (0.0-10.0); %Neutrophils 67.9 % (42.0-75.0); Hemoglobin 8.2 g/dL (14.0-18.0); Mean Corpuscular HGB CONC 32.8 g/dL (32.0-36.0); Mean Corpuscular Hemoglobin 30.3 pg (27.0-31.0); Mean Corpuscular Volume 92.3 fL (78.0-98.0); Mean Platelet Volume 8.2 fL (7.4-10.4); Platelet Count 87 thou/uL (130-400); RBC Distribution Width 12.6 % (11.5-14.5); White Blood Cell (WBC) Count 4.7 thou/uL (4.8-10.8)
[2018-08-06 05:15] LABS: ALT (SGPT) 8 U/L (8-55); AST (SGOT) 19 U/L (5-34); Albumin 3.4 g/dL (3.5-5.0); Alkaline Phosphatase 33 U/L (40-150); Anion Gap 13 mmol/L (10-20); BUN (Urea Nitrogen) 57 mg/dL (8.4-25.7); Bilirubin, Total 3.1 mg/dL (0.2-1.2); Calc. Creatinine Clearance 16 mL/min (70-130); Calcium 8.8 mg/dL (7.8-10.44); Carbon Dioxide 27 mmol/L (22-29); Chloride 100 mmol/L (98-107); Estimated GFR-MDRD 9; Globulin 2.9 g/dL (2.4-3.5); Glucose 115 mg/dL (70-105); Potassium 3.3 mmol/L (3.5-5.1); Protein, Total 6.3 g/dL (6.0-8.3); Sodium 137 mmol/L (136-145)
[2018-08-06] MEDS: Albumin 25% 25 GM/100 ML BOT IVPB SCH ×4 (05:25→23:32)
--- NOTE | 2018-08-06 06:50 | PDOC.FM ---
- Subjective Subjective: Pt feeling better today after paracentesis yesterday. No complaints today. Patient wants to know if he is going to live. - Objective Vital Signs & Weight: Vital Signs (12 hours) Temp Pulse Resp BP BP Pulse Ox 08/06/18 04:00 109/66 08/06/18 03:33 99.2 F 66 18 109/66 94 L 08/06/18 00:00 98.4 F 70 20 126/70 126/70 08/05/18 20:14 97.5 F L 68 18 123/77 123/77 93 L Weight Admit Weight 85.275 kg Weight 81.873 kg I&O: 08/04/18 08/05/18 08/06/18 06:59 06:59 06:59 Intake Total 2187 2307 1326 Output Total 1278 1220 7468 Balance 912 7597 -5206 Result Diagrams: 08/06/18 04:28 08/06/18 04:28 Phys Exam - Physical Examination Constitutional: NAD Appears pale, slightly jaundiced Respiratory: no wheezing, no rales, clear to auscultation bilateral Cardiovascular: RRR, no significant murmur Gastrointestinal: positive bowel sounds distended Musculoskeletal: no edema, pulses present Neurological: moves all 4 limbs Psychiatric: A&O x 3 Deviation from normal: flat affect Dx/Plan (1) Acute renal failure Status: Acute (2) Alcohol abuse Code(s): F10.10 - ALCOHOL ABUSE, UNCOMPLICATED Status: Chronic (3) Cirrhosis Code(s): K74.60 - UNSPECIFIED CIRRHOSIS OF LIVER Status: Acute (4) Hepatorenal syndrome Code(s): K76.7 - HEPATORENAL SYNDROME Status: Acute (5) Hyperkalemia Code(s): E87.5 - HYPERKALEMIA Status: Acute (6) Hyponatremia Code(s): E87.1 - HYPO-OSMOLALITY AND HYPONATREMIA Status: Acute (7) Normocytic anemia Code(s): D64.9 - ANEMIA, UNSPECIFIED Status: Chronic (8) Pancreatitis Code(s): K85.90 - ACUTE PANCREATITIS WITHOUT NECROSIS OR INFECTION, UNSP Status: Acute (9) Tobacco abuse Code(s): Z72.0 - TOBACCO USE Status: Acute - Plan Plan: Acute Renal Failure, 2/2 hepatorenal syndrome type 1 - Nephrology, Dr Ritchie consulted, appreciate recommendations -D/c bicarb, follow low salt diet - Creatinine continues to improve: Cr 10.69->8.22 -> 6.38 - hold nephrotoxic medications. Hold diuretics. - Strict I&O's, renally dose medications - Continue to monitor renal function with AM labs - Dr. Cueto consulted, appreciate recommendations: -continue albumin, octreotide, midodrine, lactulose - hold diuretics, avoid NSAIDs -Recommends contacting transplant center in [place], we will do this today Cirrhosis 2/2 Alcohol abuse and Hep C; End Stage Liver disease - MELD: 33 - Sees GI (Dr Cueto) outpt, last therapeutic paracentesis 07/29/18 - therapeutic paracentesis yestserday with Dr. Sanabria, removed 6 L fluid - Appreciate GI recommendations -Continue albumin, octreotide, midodrine Hyperkalemia, now hypokalemia - 5.8->5.1->4.1 -> 3.7 -> 3.3 - replace with PO K 40 meq today - EKG stable - spironolactone held - AM BMP Elevated Ammonia - 78 - Continue lactulose, goal 3-4 BM/day - Will continue to monitor - A&Ox3 Normocytic Anemia - Hgb 10.5->8.5->7.7 ->7.8 -> 8.2 - Will continue to monitor CBC Hyponatremia, resolved - 128 -> 130->133 -> 135-> 137 - Unknown baseline - Continue to monitor, AM CMP Alcohol Abuse - Reports last drink 14 days ago, no hx of w/d seizures in past - on folic acid - ASE protocol - Ativan PRN - UDS neg (UDS positive for opiates but pt received morphine here prior to draw) Tobacco Abuse - Encourage Cessation - Consider low dose Nicotine patch Code Status: DNR DVT ppx: SCDs, protonix
[2018-08-06] MEDS: Folic Acid 1 MG TAB PO SCH (08:12)
[2018-08-06] MEDS: Midodrine HCl 5 MG TAB PO SCH ×3 (08:13→21:38)
[2018-08-06] MEDS: Multivitamin W/ Minerals 1 TAB PO SCH (08:13)
[2018-08-06] MEDS ORDERED: Potassium Chloride 20 MEQ TAB PO SCH (08:45)
--- NOTE | 2018-08-06 11:36 | PRG ---
DATE OF SERVICE: 08/06/2018 SUBJECTIVE: There has really been no significant change in Mr. Almazan's clinical state. He is still very lethargic and at times encephalopathic. He is on lactulose. Dr. Cueto again saw the patient y esterday and we appreciate his recommendations. We will contact the liver transplant center in [facility] as otherwise this gentleman's prognosis is dismal.
--- NOTE | 2018-08-06 21:12 | PRG ---
DATE OF SERVICE: 08/06/2018 REASON FOR CONSULTATION: Cirrhosis with possible hepatorenal syndrome. SUBJECTIVE: The patient states that he is doing well today with no acute events or problems overnigh t. However, upon interview today, the patient's mental acuity seems slowed when compared to prior ex amination. Currently, he denies any nausea, vomiting, fevers, chills, GI bleeding, odynophagia, or d ysphagia. His abdominal pain has improved with the paracentesis performed yesterday. OBJECTIVE: VITAL SIGNS: Temperature 98.1, pulse 65, blood pressure 129/74, respiratory rate 16, satting 95% on room air. GENERAL: The patient is lying in bed, in no acute distress, alert and oriented x3. CARDIOVASCULAR: Regular rate and rhythm. LUNGS: Clear to auscultation bilaterally. ABDOMEN: Normoactive bowel sounds. Mild tenderness to palpation in all abdominal quadrants, especia lly in the lower abdominal quadrants. The abdomen is significantly distended with positive shifting dullness, but not tense to percussion/palpation. EXTREMITIES: 1+/2+ bilateral lower extremity edema extending to his knees. LABORATORY DATA: CBC with a white blood cell count of 4.7, hemoglobin 8.2, hematocrit 24.9, platelet s 87. Chemistry with a sodium of 137, potassium 3.3, chloride 100, CO2 27, BUN 57, creatinine 6.38, glucose 115. IMAGING DATA: No current GI imaging is available for review. ASSESSMENT AND PLAN: The patient is a 53-year-old male with past medical history of chronic hepatiti s C and cirrhosis complicated by ascites, lower extremity edema, hepatic encephalopathy, presenting w ith worsening renal insufficiency concerning for hepatorenal syndrome type 1. Hepatorenal syndrome type 1/acute renal failure: The patient initially presenting with worsening chey al function over the last 1-2 weeks prior to admission while on diuretic therapy for this part of man agement for his worsening ascites. However, during the course of this hospitalization with administr ation of an octreotide drip, and daily albumin infusions, he has had significant improvement in his renal function with the creatinine down trending at this time. RECOMMENDATIONS: 1. Continue to hold any diuretic management. 2. Continue to trend chemistries daily. 3. We would continue albumin infusion 100 grams daily for the next 24 hours, then would consider dis continuation. 4. We would continue octreotide drip again for the next 24 hours and then consider discontinuation. 5. I would continue midodrine for now as well. Then, probably discontinue on discharge. 6. We would continue to avoid any NSAIDs or potentially renal toxic medications. Ascites: The patient is presenting with a prior history of significant hepatic ascites, which has be en characterized as significantly distended abdomen. He underwent paracentesis yesterday with approx imately 6 liters of fluid drawn off with decreased abdominal pain and mild decrease in his abdominal distention today. RECOMMENDATIONS: 1. We will follow up on labs related to his paracentesis today. 2. Continue to hold diuretics in light of worsening renal function. Cirrhosis: The patient is presenting with a history of cirrhosis with currently decompensated liver disease with a calculated MELD score of 32 and Child-Burns classification C which carries with an appr oximate 60%-66%, 90-day mortality. Referral to a transplant center had been initiated by our office a couple weeks ago and we were able to contact him to see whether or not the patient would be an acce ptable candidate. At this point in time and conferring with the liver transplant team in [place] , he has been denied due to financial reasons. RECOMMENDATIONS: At this point, given that his current financial status and denial of evaluation for possible liver transplant, we will continue with current above therapies with possible reattempt at establishing care with a liver transplant center in [place] at a later date. Hepatic encephalopathy: The patient has been responding well during this hospitalization with admini stration of lactulose 30 mL b.i.d., although did exhibit some mental slowing today, but was able to a nswer questions appropriately. It is unclear at this time if this is due to worsening hepatic enceph alopathy or due to the patient's medical comorbidities. RECOMMENDATIONS: 1. We would continue lactulose 30 mL b.i.d. with a target to have 3-4 semi-solid bowel movements per day. 2. We will continue to follow. Please call with any questions.
--- NOTE | 2018-08-06 21:41 | PRG ---
DATE OF SERVICE: 08/06/2018 SUBJECTIVE: The patient is seen and examined, seems to be doing much better. OBJECTIVE: VITAL SIGNS: Afebrile with temperature 98.1, pulse 55, respiratory rate 16, O2 sat 95% with blood pr essure 129/74. HEENT: Unremarkable. CARDIOVASCULAR: First and second heart sounds were heard. RESPIRATORY: Clear to auscultation. DIGESTIVE: Revealed a distended abdomen. EXTREMITIES: No peripheral edema. SKIN: No new gross rash. LYMPHATICS: No peripheral lymphadenopathy. LABORATORY INVESTIGATIONS: Showed a creatinine down to 6.38, potassium 3.3. IMPRESSION: 1. End-stage liver disease. 2. Hepatorenal syndrome, improved. 3. Status post large volume paracentesis. Hemodynamically, she remained stable. 4. Hypokalemia. PLAN: 1. Discontinue Jackson catheterization. 2. Renal supportive measures. We will begin to deescalate IV fluid resuscitation. 3. Renally dose all medications for low GFR and avoid potentially nephrotoxic agents. 4. Further management to be dependent on the clinical course.
[2018-08-07] MEDS: Ondansetron ODT 4 MG TAB PO PRN ×3 (02:25→21:34)
[2018-08-07 04:57] LABS: #Eosinphils 0.1 thou/uL (0.0-0.7); #Lymphocytes 0.8 thou/uL (1.20-3.40); #Monocytes 0.5 thou/uL (0.11-0.59); #Neutrophils 2.4 thou/uL (1.40-6.50); %Basophils 0.7 % (0.0-1.0); %Eosinophils 3.6 % (0.0-10.0); %Lymphocytes 20.1 % (21.0-51.0); %Monocytes 12.7 % (0.0-10.0); Hemoglobin 8.3 g/dL (14.0-18.0); Mean Corpuscular HGB CONC 31.8 g/dL (32.0-36.0); Mean Corpuscular Hemoglobin 29.6 pg (27.0-31.0); Mean Corpuscular Volume 93.1 fL (78.0-98.0); Mean Platelet Volume 6.6 fL (7.4-10.4); Platelet Count 84 thou/uL (130-400); RBC Distribution Width 12.7 % (11.5-14.5); Red Blood Cell (RBC) Count 2.81 mill/uL (4.70-6.10); White Blood Cell (WBC) Count 3.8 thou/uL (4.8-10.8)
[2018-08-07 05:04] LABS: ALT (SGPT) 8 U/L (8-55); AST (SGOT) 18 U/L (5-34); Albumin 3.9 g/dL (3.5-5.0); Alkaline Phosphatase 27 U/L (40-150); Anion Gap 14 mmol/L (10-20); BUN (Urea Nitrogen) 46 mg/dL (8.4-25.7); Bilirubin, Total 3.8 mg/dL (0.2-1.2); Calc. Creatinine Clearance 21 mL/min (70-130); Calcium 9.4 mg/dL (7.8-10.44); Carbon Dioxide 25 mmol/L (22-29); Chloride 106 mmol/L (98-107); Estimated GFR-MDRD 13; Globulin 2.7 g/dL (2.4-3.5); Glucose 131 mg/dL (70-105); Potassium 3.4 mmol/L (3.5-5.1); Protein, Total 6.6 g/dL (6.0-8.3); Sodium 142 mmol/L (136-145)
[2018-08-07] MEDS: Albumin 25% 25 GM/100 ML BOT IVPB SCH (05:14)
--- NOTE | 2018-08-07 05:46 | PDOC.FM ---
- Subjective Subjective: Pt states he has been eating and drinking, having bowel movements. Pt states he is thirsty. - Objective Vital Signs & Weight: Vital Signs (12 hours) Temp Pulse Resp BP BP Pulse Ox 08/07/18 04:00 135/87 08/07/18 03:20 98.4 F 64 18 135/87 100 08/07/18 00:00 148/69 H 08/06/18 20:00 98.3 F 65 18 156/72 H 156/72 H 100 Weight Admit Weight 85.275 kg Weight 81.873 kg I&O: 08/05/18 08/06/18 08/07/18 06:59 06:59 06:59 Intake Total 2307 1326 912 Output Total 1220 9761 783 Balance 1087 -6161 129 Result Diagrams: 08/07/18 04:36 08/07/18 04:36 Phys Exam - Physical Examination Constitutional: NAD Respiratory: no wheezing, clear to auscultation bilateral Cardiovascular: RRR, no significant murmur Gastrointestinal: soft, positive bowel sounds +distention and fluid wave Musculoskeletal: no edema, pulses present Neurological: moves all 4 limbs Psychiatric: normal affect Deviation from normal: Oriented to person and place, not to time (stated it was Aug 10, 2020), speech clear this AM Dx/Plan (1) Acute renal failure Status: Acute (2) Alcohol abuse Code(s): F10.10 - ALCOHOL ABUSE, UNCOMPLICATED Status: Chronic (3) Cirrhosis Code(s): K74.60 - UNSPECIFIED CIRRHOSIS OF LIVER Status: Acute (4) Hepatorenal syndrome Code(s): K76.7 - HEPATORENAL SYNDROME Status: Acute (5) Hyperkalemia Code(s): E87.5 - HYPERKALEMIA Status: Acute (6) Hyponatremia Code(s): E87.1 - HYPO-OSMOLALITY AND HYPONATREMIA Status: Acute (7) Normocytic anemia Code(s): D64.9 - ANEMIA, UNSPECIFIED Status: Chronic (8) Pancreatitis Code(s): K85.90 - ACUTE PANCREATITIS WITHOUT NECROSIS OR INFECTION, UNSP Status: Acute (9) Tobacco abuse Code(s): Z72.0 - TOBACCO USE Status: Acute - Plan Plan: Acute Renal Failure, 2/2 hepatorenal syndrome type 1 - Nephrology, Dr Ritchie consulted, appreciate recommendations -D/c bicarb, follow low salt diet, de-escalate IV fluids - Creatinine continues to improve: Cr 10.69->8.22 -> 6.38 -> 4.67 - hold nephrotoxic medications. Hold diuretics. - Strict I&O's, renally dose medications - Continue to monitor renal function with AM labs Cirrhosis 2/2 Alcohol abuse and Hep C; End Stage Liver disease - MELD: 33 - Sees GI (Dr Cueto) outpt - therapeutic paracentesis 08/05/[address] Sanabria, removed 6 L fluid -studies for paracentesis fluid pending - Dr. Cueto consulted, appreciate recommendations: -continue albumin, octreotide, midodrine, lactulose - hold diuretics, avoid NSAIDs - Patient is not a candidate for transplant due to financial limitations at this time. Hyperkalemia, now hypokalemia - 5.8->5.1->4.1 -> 3.7 -> 3.3 - will replace with PO K again today - EKG stable - spironolactone held - AM BMP Hepatic Encephalopathy - Ammonia 56 today - Continue lactulose, goal 3-4 BM/day - Will continue to monitor - A&Ox2 Normocytic Anemia - Hgb 10.5->8.5->7.7 ->7.8 -> 8.2 -> 8.3 - Will continue to monitor CBC Hyponatremia, resolved - 128 -> 130->133 -> 135-> 137 - Unknown baseline - Continue to monitor, AM CMP Alcohol Abuse - Reports last drink 14 days before admission, no hx of w/d seizures in past - on folic acid - ASE protocol - Ativan PRN - UDS neg (UDS positive for opiates but pt received morphine here prior to draw) Tobacco Abuse - Encourage Cessation - Consider low dose Nicotine patch Code Status: DNR DVT ppx: SCDs, protonix
[2018-08-07 07:56] LABS: BF Color Yellow; Body Fluid Source PARACENTESIS FLD; Clarity Clear (Clear); Tube # EDTA
[2018-08-07] MEDS: Midodrine HCl 5 MG TAB PO SCH ×3 (08:29→21:28)
[2018-08-07] MEDS: Folic Acid 1 MG TAB PO SCH (08:29)
[2018-08-07] MEDS: Morphine 4 MG/ML VIAL SLOW IVP PRN ×4 (08:30→21:38)
[2018-08-07] MEDS: Multivitamin W/ Minerals 1 TAB PO SCH (08:30)
[2018-08-07 08:36] LABS: BF RBC Count - Manual 4 /cumm; BF WBC/Nonhematics Ct. - Manua 19 /cumm
[2018-08-07] MEDS: Octreotide Acetate 1,250 MCG in Sodium Chloride 0.9% 250 ML 250 ML IVPB SCH (08:40)
[2018-08-07] MEDS ORDERED: Potassium Chloride 20 MEQ TAB PO SCH (09:15)
[2018-08-07 10:23] LABS: BF Segmented Neutrophils 3 %; Cell Count Non Hematic 49 %; Lymphocytes 48 %
--- NOTE | 2018-08-07 12:07 | PRG ---
DATE OF SERVICE: 08/07/2018 The patient was seen and examined, seems to be doing much better. PHYSICAL EXAMINATION: VITAL SIGNS: Afebrile with temperature 98.6, pulse 51, blood pressure 127/70, respiratory rate of 1 4, O2 sat 97%. HEENT: Unremarkable. CARDIOVASCULAR: First and heart sounds were heard. RESPIRATORY: Clear to auscultation. DIGESTIVE: Revealed a benign abdomen with positive bowel sounds. EXTREMITIES: No peripheral edema. SKIN: No new gross rash. LYMPHATICS: No peripheral lymphadenopathy. IMPRESSION: 1. End-stage liver disease. 2. Hepatorenal syndrome seems to be improving. 3. Status post ____ paracentesis. PLAN: 1. Continue current renal supportive measures. 2. Avoid potentially nephrotoxic agents. 3. Further management to be dependent on the clinical course.
--- NOTE | 2018-08-07 12:30 | ADD-PRG ---
ADDENDUM This is an addendum to the note of Dr. Diamante Johnson. Unfortunately, Mr. Almazan does not qualify with financial resources for liver transplant. His progno sis is extremely poor. He is in and out of hepatic encephalopathy. He is still being maintained on lactulose. We will continue with his albumin, octreotide, midodrine, and lactulose as per recommenda tions of GI Service.
--- NOTE | 2018-08-07 18:43 | PRG ---
DATE OF SERVICE: 08/07/2018 REASON FOR CONSULTATION: Cirrhosis with acute renal failure. SUBJECTIVE: The patient states that he did well overnight with no acute events or problems. He had had approximately 2 bowel movements during the course of today and did have an additional bowel movem ent at the time of this interview. His mental acuity seemed improved when compared to examination ye day. Currently, he states that his abdominal discomfort is unchanged. He denies any nausea, vom iting, fevers, chills, GI bleeding, odynophagia, or dysphagia. Of note, the palliative care team was in to discuss his prognosis and possible end of life issues/adv anced directives. OBJECTIVE: VITAL SIGNS: Temperature 98.7, pulse 63, blood pressure 127/78, respiratory rate 18, satting 97% on room air. GENERAL: The patient was lying in bed, in no acute distress. Alert and oriented x4. CARDIOVASCULAR: Regular rate and rhythm. RESPIRATORY: Clear to auscultation bilaterally. ABDOMEN: Normoactive bowel sounds. Mild tenderness to palpation in the lower abdominal quadrants wi th significant distention and positive shifting dullness. EXTREMITIES: 1+/2+ bilateral lower extremity edema extending to the bilateral knees. LABORATORY DATA: CBC with a white blood cell count of 3.8, hemoglobin 8.3, hematocrit 26.2, platelet s 84. Chemistry with sodium of 142, potassium 3.4, chloride 106, CO2 25, BUN 46, creatinine 4.67, gl ucose 131, AST 18, ALT 8, alkaline phosphatase 27, total bilirubin 3.8. MELD score calculation at 33 , which carries a 60%-66% chance of 90-day mortality. IMAGING DATA: No current GI imaging is available for review. ASSESSMENT AND PLAN: The patient is a 53-year-old male with past medical history of chronic hepatiti s C and cirrhosis complicated by ascites, lower extremity edema, and hepatic encephalopathy, presenti with worsening renal insufficiency concerning for hepatorenal syndrome type 1. Hepatorenal syndrome type 1/acute renal failure: The patient initially presented with worsening jocelyne l function over the last 1-2 weeks prior to admission while on diuretic therapy; however, during the course of this hospitalization with the administration of midodrine, octreotide and albumin infusions , he has had significant improvement in his renal function with the creatinine down from 10-4.6 today . RECOMMENDATIONS: 1. Continue to hold any diuretic management for his ascites. 2. We would continue to trend chemistries daily along with INR. 3. We will discontinue albumin infusion daily as well as we would discontinue the octreotide drip, b ut continue midodrine for the next 24 hours. We will actually continue the midodrine until discharge . 4. We would continue to avoid any NSAIDs or potentially renal toxic medications. Ascites: The patient is presenting with prior history of significant hepatic ascites, for which he u nderwent paracentesis during this hospitalization with approximately 6 liters of fluid drawn off with the discontinuation of the diuretics related to possible hepatorenal syndrome. He may need repeat p aracentesis here in the near future. RECOMMENDATIONS: 1. We would continue to hold diuretics in light of worsening renal function. 2. We would consider repeat paracentesis either this Sunday or Sunday. Cirrhosis: The patient is presenting with a history of cirrhosis with decompensated liver disease an d a calculated MELD score of 33 and Child-Burns classification C which carries an approximate 60%-66%, 90-day mortality. Referral to a transplant center had been initiated by our office [facility] in [place]. He has been denied due to financial reaso ns. RECOMMENDATIONS: Given his current financial status and lack of significant support, liver transplan tation evaluation is unlikely given his guarded prognosis consultation of palliative care team to dis cuss end of life issues is not unreasonable Hepatic encephalopathy: The patient has been responding well during this hospitalization with admini stration of lactulose 30 mL b.i.d. and while he did exhibit some mental slowing yesterday, he was com pletely appropriate today. RECOMMENDATIONS: 1. Continue lactulose 30 mL b.i.d. with a target to have 3-4 semi-solid bowel movements per day. 2. We will continue to follow. Please call with any questions.
[2018-08-08] MEDS: Morphine 4 MG/ML VIAL SLOW IVP PRN ×5 (02:12→23:06)
[2018-08-08] MEDS: Ondansetron ODT 4 MG TAB PO PRN ×5 (02:13→23:06)
[2018-08-08 05:01] LABS: #Eosinphils 0.3 thou/uL (0.0-0.7); #Lymphocytes 1.2 thou/uL (1.20-3.40); #Monocytes 0.8 thou/uL (0.11-0.59); #Neutrophils 3.1 thou/uL (1.40-6.50); %Basophils 0.4 % (0.0-1.0); %Eosinophils 4.7 % (0.0-10.0); %Lymphocytes 21.8 % (21.0-51.0); %Monocytes 14.9 % (0.0-10.0); %Neutrophils 58.1 % (42.0-75.0); Hemoglobin 8.4 g/dL (14.0-18.0); Mean Corpuscular HGB CONC 32.1 g/dL (32.0-36.0); Mean Corpuscular Hemoglobin 30.1 pg (27.0-31.0); Mean Corpuscular Volume 93.6 fL (78.0-98.0); Mean Platelet Volume 7.2 fL (7.4-10.4); Platelet Count 84 thou/uL (130-400); RBC Distribution Width 12.7 % (11.5-14.5); Red Blood Cell (RBC) Count 2.78 mill/uL (4.70-6.10); White Blood Cell (WBC) Count 5.4 thou/uL (4.8-10.8)
[2018-08-08 05:12] LABS: ALT (SGPT) 8 U/L (8-55); AST (SGOT) 20 U/L (5-34); Alkaline Phosphatase 30 U/L (40-150); Anion Gap 14 mmol/L (10-20); BUN (Urea Nitrogen) 36 mg/dL (8.4-25.7); Calc. Creatinine Clearance 25 mL/min (70-130); Calcium 9.2 mg/dL (7.8-10.44); Carbon Dioxide 24 mmol/L (22-29); Chloride 106 mmol/L (98-107); Estimated GFR-MDRD 17; Globulin 2.9 g/dL (2.4-3.5); Glucose 137 mg/dL (70-105); Potassium 3.6 mmol/L (3.5-5.1); Protein, Total 6.9 g/dL (6.0-8.3); Sodium 140 mmol/L (136-145)
--- NOTE | 2018-08-08 05:58 | PDOC.FM ---
- Subjective Subjective: Pt feeling well this AM. Unable to sleep well last night due to frequent bowel movements. - Objective Vital Signs & Weight: Vital Signs (12 hours) Temp Pulse Resp BP BP BP Pulse Ox 08/08/18 04:00 126/71 08/08/18 03:59 98.9 F 60 16 126/71 96 08/08/18 00:00 98.6 F 62 20 138/68 138/68 08/07/18 20:00 98.9 F 60 20 113/56 L 113/56 L 96 Weight Admit Weight 85.275 kg Weight 77.973 kg I&O: 08/06/18 08/07/18 08/08/18 06:59 06:59 06:59 Intake Total 1326 1621 1320 Output Total 7450 1133 Balance -6124 488 1320 Result Diagrams: 08/08/18 04:43 08/08/18 04:43 Phys Exam - Physical Examination Constitutional: NAD Respiratory: no wheezing, clear to auscultation bilateral Cardiovascular: RRR, no significant murmur Gastrointestinal: positive bowel sounds +distention, TTP around site of paracentesis Musculoskeletal: no edema, pulses present Neurological: moves all 4 limbs Psychiatric: normal affect, A&O x 3 Dx/Plan (1) Acute renal failure Status: Acute (2) Alcohol abuse Code(s): F10.10 - ALCOHOL ABUSE, UNCOMPLICATED Status: Chronic (3) Cirrhosis Code(s): K74.60 - UNSPECIFIED CIRRHOSIS OF LIVER Status: Acute (4) Hepatorenal syndrome Code(s): K76.7 - HEPATORENAL SYNDROME Status: Acute (5) Hyperkalemia Code(s): E87.5 - HYPERKALEMIA Status: Acute (6) Hyponatremia Code(s): E87.1 - HYPO-OSMOLALITY AND HYPONATREMIA Status: Acute (7) Normocytic anemia Code(s): D64.9 - ANEMIA, UNSPECIFIED Status: Chronic (8) Pancreatitis Code(s): K85.90 - ACUTE PANCREATITIS WITHOUT NECROSIS OR INFECTION, UNSP Status: Acute (9) Tobacco abuse Code(s): Z72.0 - TOBACCO USE Status: Acute - Plan Plan: Acute Renal Failure, 2/2 hepatorenal syndrome type 1 - Nephrology, Dr Ritchie consulted, appreciate recommendations -follow low salt diet, de-escalate IV fluids - Creatinine continues to improve: Cr 10.69->8.22 -> 6.38 -> 4.67 -> 3.74 - hold nephrotoxic medications (including NSAIDs). Hold diuretics. - Strict I&O's, renally dose medications - Continue to monitor renal function with AM labs Cirrhosis 2/2 Alcohol abuse and Hep C; End Stage Liver disease - MELD: 33 - Sees GI (Dr Cueto) outpt - therapeutic paracentesis 08/05/[address] Sanabria, removed 6 L fluid -studies for paracentesis fluid pending - Dr. Cueto consulted, appreciate recommendations: - discontinue albumin, octreotide; continue midodrine, lactulose - Patient is not a candidate for transplant due to financial limitations at this time. Ascites -Pt will need repeat paracentesis in the near future, Sunday or Sunday -Studies for paracentesis fluid pending (08/05/18), culture pending. Initial gram stain negative Hyperkalemia and hypokalemia, resolved - 5.8->5.1->4.1 -> 3.7 -> 3.3 ->3.6 - EKG stable - spironolactone held - AM BMP Hepatic Encephalopathy - Ammonia 57 - Continue lactulose, goal 3-4 BM/day -consider changing dosing to earlier in the day to lessen BM overnight. - Will continue to monitor - A&Ox3 Normocytic Anemia - Hgb 10.5->8.5->7.7 ->7.8 -> 8.2 -> 8.3 - Will continue to monitor CBC Hyponatremia, resolved - 128 -> 130->133 -> 135-> 137 -> 140 - Unknown baseline - Continue to monitor, AM CMP Alcohol Abuse - Reports last drink 14 days before admission, no hx of w/d seizures in past - on folic acid - ASE protocol - Ativan PRN - UDS neg (UDS positive for opiates but pt received morphine here prior to draw) Tobacco Abuse - Encourage Cessation - Consider low dose Nicotine patch Code Status: DNR DVT ppx: SCDs, protonix
[2018-08-08] MEDS: Midodrine HCl 5 MG TAB PO SCH ×3 (09:08→20:08)
[2018-08-08] MEDS: Folic Acid 1 MG TAB PO SCH (09:08)
[2018-08-08] MEDS: Multivitamin W/ Minerals 1 TAB PO SCH (09:09)
[2018-08-08 10:06] LABS: Prothrombin Time 23.1 SEC (12.0-14.7)
--- NOTE | 2018-08-08 10:11 | PRG ---
DATE OF SERVICE: 08/08/2018 REASON FOR CONSULTATION: Cirrhosis with acute renal failure. SUBJECTIVE: The patient did well overnight with no acute events or problems. He states that he had approximately 4 semi-solid and liquid bowel movements yesterday with his mental acuity seemingly at b aseline today. Currently, he states that he does have some mild abdominal pain in the lower abdomina l quadrants, more related to the recent paracentesis than the pain that he came in with. Currently, denies any nausea, vomiting, fevers, chills, GI bleeding, odynophagia, or dysphagia. OBJECTIVE: VITAL SIGNS: Temperature 97.6, pulse 63, blood pressure 125/51, respiratory rate 16, satting 96% on room air. GENERAL: The patient was lying in bed in no acute distress. Alert and oriented x4. CARDIOVASCULAR: Regular rate and rhythm. RESPIRATORY: Clear to auscultation bilaterally. ABDOMEN: Normoactive bowel sounds. Mild tenderness to palpation in the lower abdominal quadrants wi th significant distention and positive shifting dullness. EXTREMITIES: 1+/2+ bilateral lower extremity edema extending to bilateral knees. LABORATORY DATA: CBC with a white blood cell count of 5.4, hemoglobin 8.4, hematocrit 26, platelets 84. Chemistry with sodium 140, potassium 3.6, chloride 106, CO2 24, BUN 36, creatinine 3.74, glucose 137, AST 20, ALT 8, alkaline phosphatase 30, total bilirubin 4.0, calculation of MELD score with mos t recent INR places him at approximately 33 which carries a 60%-66% chance of nonunion mortality. IMAGING DATA: No current GI imaging is available for review. ASSESSMENT AND PLAN: The patient is a 53-year-old male with past medical history of chronic hepatiti s C and cirrhosis complicated by ascites, lower extremity edema and hepatic encephalopathy, presentin g with worsening renal insufficiency that was initially concerning for hepatorenal syndrome type 1, b ut has been responding to treatment. HEPATORENAL SYNDROME TYPE 1/ACUTE RENAL FAILURE: The patient initially presented with worsening jocelyne l function over the last 1-2 weeks which at this point may have been to increase diuretic therapy whi le on furosemide, spironolactone, and bumetanide; however, during the course of his hospitalization, he has had significant improvement in his renal function with administration of midodrine, octreotide and albumin infusions with his creatinine down to 3.7 today. RECOMMENDATIONS: 1. Continue to hold any diuretics given recent renal failure. 2. Continue to trend chemistries daily along with INR. 3. Would discontinue the octreotide drip today, but continues midodrine until discharge. 4. Continue to avoid any NSAIDs or potentially renal toxic medications. ASCITES: The patient presenting with significant hepatic ascites for which he underwent paracentesis during this hospitalization with approximately 6 liters of fluid removed. He still continues to hav e significant ascitic buildup, but further paracentesis at this time may lead to fluid shifts. RECOMMENDATIONS: 1. Continue to hold diuretics. 2. Consider repeat paracentesis early next week. CIRRHOSIS: Patient is presenting with a history of cirrhosis with decompensated liver disease and ca lculated MELD score of 33 and Child-Burns classification C which carries itself a poor prognosis. Ref erral to a transplant center has been initiated by our office and with the transfer center here [facility] in [place]. At the current time, he has been denied due to financial re asons. RECOMMENDATIONS: Given his inability to be evaluated for liver transplantation hospice or palliative care consultation is appropriate given his poor prognosis. HEPATIC ENCEPHALOPATHY: The patient has been responding well during this hospitalization with admini stration of lactulose 30 mL b.i.d. with approximately 3-4 bowel movements per day. RECOMMENDATIONS: Continue lactulose 30 mL b.i.d. with target to have 3-4 semi-solid bowel movements per day. We will continue to follow. Please call with any questions.
--- NOTE | 2018-08-08 10:35 | PRG ---
DATE OF SERVICE: 08/08/2018 SUBJECTIVE: Mr. Almazan is much less confused this morning. In fact, he is oriented x3. He underwen t therapeutic paracentesis. We discussed the case with GI and we will arrange for palliative care co nsultation. His hemoglobin is stable at 8.4 with hematocrit of 26.0. Chemistry is stable. Creatinine has droppe d to 3.74.
[2018-08-08] MEDS: Octreotide Acetate 1,250 MCG in Sodium Chloride 0.9% 250 ML 250 ML IVPB SCH (13:44)
--- NOTE | 2018-08-08 20:54 | PRG ---
DATE OF SERVICE: 08/08/2018 SUBJECTIVE: The patient was seen and examined, continued to maintain sustained clinical improvement noted with the following vital signs. OBJECTIVE: VITAL SIGNS: Afebrile with temperature 98.3, pulse 65, respiratory rate 16, O2 sat 98%, blood pressu re 122/59. HEENT: Unremarkable with moist oral mucosa. NECK: Supple. No conjunctival injection or icterus. CARDIOVASCULAR: First and second heart sounds were heard. RESPIRATORY: Clear to auscultation. DIGESTIVE: Revealed a benign abdomen with positive bowel sounds. EXTREMITIES: No peripheral edema. SKIN: No new gross rash. LYMPHATICS: No peripheral lymphadenopathy. LABORATORY INVESTIGATIONS: Showed hemoglobin of 8.4. Chemistry showed a creatinine down to 3.74 wit h BUN of 36. IMPRESSION: 1. End-stage liver disease. 2. Hepatorenal syndrome, improving. PLAN: 1. We would continue current renal supportive measures. 2. Further management to be dependent on the clinical course.
[2018-08-09] MEDS: Morphine 4 MG/ML VIAL SLOW IVP PRN ×4 (03:36→17:17)
[2018-08-09] MEDS: Ondansetron ODT 4 MG TAB PO PRN ×4 (03:36→17:17)
[2018-08-09 04:29] LABS: #Eosinphils 0.2 thou/uL (0.0-0.7); #Monocytes 0.6 thou/uL (0.11-0.59); #Neutrophils 2.7 thou/uL (1.40-6.50); %Eosinophils 4.3 % (0.0-10.0); %Lymphocytes 21.2 % (21.0-51.0); %Monocytes 13.4 % (0.0-10.0); %Neutrophils 60.2 % (42.0-75.0); Hemoglobin 7.9 g/dL (14.0-18.0); Mean Corpuscular HGB CONC 32.5 g/dL (32.0-36.0); Mean Corpuscular Volume 92.5 fL (78.0-98.0); Mean Platelet Volume 6.8 fL (7.4-10.4); Platelet Count 82 thou/uL (130-400); RBC Distribution Width 12.7 % (11.5-14.5); Red Blood Cell (RBC) Count 2.62 mill/uL (4.70-6.10); White Blood Cell (WBC) Count 4.5 thou/uL (4.8-10.8)
[2018-08-09 04:42] LABS: ALT (SGPT) 10 U/L (8-55); AST (SGOT) 24 U/L (5-34); Albumin 3.5 g/dL (3.5-5.0); Alkaline Phosphatase 33 U/L (40-150); Anion Gap 13 mmol/L (10-20); BUN (Urea Nitrogen) 29 mg/dL (8.4-25.7); Bilirubin, Total 3.3 mg/dL (0.2-1.2); Calc. Creatinine Clearance 33 mL/min (70-130); Calcium 8.8 mg/dL (7.8-10.44); Carbon Dioxide 23 mmol/L (22-29); Chloride 108 mmol/L (98-107); Estimated GFR-MDRD 24; Globulin 2.7 g/dL (2.4-3.5); Glucose 106 mg/dL (70-105); Potassium 3.5 mmol/L (3.5-5.1); Protein, Total 6.2 g/dL (6.0-8.3); Sodium 140 mmol/L (136-145)
--- NOTE | 2018-08-09 06:37 | PDOC.FM ---
- Subjective Subjective: AOx3 this AM, up and walking around. Pt feeling well, no complaints this AM. Per nursing, patient had 10 BM yesterday and only received 1 dose of lactulose. - Objective Vital Signs & Weight: Vital Signs (12 hours) Temp Pulse Resp BP BP Pulse Ox 08/09/18 04:00 98.9 F 60 17 111/73 111/73 97 08/09/18 00:00 114/67 08/08/18 23:14 61 18 114/67 08/08/18 20:00 98.1 F 96 20 129/72 129/72 96 Weight Admit Weight 85.275 kg Weight 77.61 kg I&O: 08/07/18 08/08/18 08/09/18 06:59 06:59 06:59 Intake Total 1621 2215.4 1402 Output Total 1133 200 400 Balance 488 2015.4 1002 Result Diagrams: 08/09/18 04:21 08/09/18 04:21 Phys Exam - Physical Examination Constitutional: NAD Neck: no nodes, supple Respiratory: no wheezing, clear to auscultation bilateral Cardiovascular: RRR, no significant murmur Gastrointestinal: positive bowel sounds +distention, leaking clear fluid from site of paracentesis mild pitting edema Neurological: moves all 4 limbs Psychiatric: normal affect, A&O x 3 Dx/Plan (1) Acute renal failure Status: Acute (2) Alcohol abuse Code(s): F10.10 - ALCOHOL ABUSE, UNCOMPLICATED Status: Chronic (3) Cirrhosis Code(s): K74.60 - UNSPECIFIED CIRRHOSIS OF LIVER Status: Acute (4) Hepatorenal syndrome Code(s): K76.7 - HEPATORENAL SYNDROME Status: Acute (5) Hyperkalemia Code(s): E87.5 - HYPERKALEMIA Status: Acute (6) Hyponatremia Code(s): E87.1 - HYPO-OSMOLALITY AND HYPONATREMIA Status: Acute (7) Normocytic anemia Code(s): D64.9 - ANEMIA, UNSPECIFIED Status: Chronic (8) Pancreatitis Code(s): K85.90 - ACUTE PANCREATITIS WITHOUT NECROSIS OR INFECTION, UNSP Status: Acute (9) Tobacco abuse Code(s): Z72.0 - TOBACCO USE Status: Acute - Plan Plan: Acute Renal Failure, 2/2 hepatorenal syndrome type 1 - Nephrology, Dr Ritchie consulted, appreciate recommendations -follow low salt diet, de-escalate IV fluids - Creatinine continues to improve: Cr 10.69-> 2.77 - hold nephrotoxic medications (including NSAIDs). Hold diuretics. - Strict I&O's, renally dose medications - Continue to monitor renal function with AM labs Cirrhosis 2/2 Alcohol abuse and Hep C; End Stage Liver disease - MELD: 28 - Sees GI (Dr Cueto) outpt - therapeutic paracentesis 08/05/[address] Sanabria, removed 6 L fluid -@ 24 hrs, culture shows NGTD -paracentesis studies appear negative for SBP - Dr. Cueto consulted, appreciate recommendations: - continue midodrine, lactulose until discharge - Patient is not a candidate for transplant due to financial limitations at this time -Held lactulose dose today as patient had 10 BM yesterday, only received 1 dose of lactulose -PC consulted, appreciate their assistance as patient has poor prognosis without a liver transplant Ascites -Pt will need repeat paracentesis in the near future, Sunday or Sunday -Studies for paracentesis fluid pending (08/05/18), culture pending. Initial gram stain negative Hyperkalemia, resolved - currently 3.5 - spironolactone held - Following AM BMPs Hepatic Encephalopathy - Ammonia 85 - Hold lactulose today, goal 3-4 BM/day - Will continue to monitor - A&Ox3 Normocytic Anemia - Hgb 10.5->8.5->7.7 ->7.8 -> 8.2 -> 8.3->7.9 - Will continue to monitor CBC Hyponatremia, resolved - currently 140 Alcohol Abuse - Reports last drink 14 days before admission, no hx of w/d seizures in past - on folic acid - ASE protocol - Ativan PRN - UDS neg (UDS positive for opiates but pt received morphine here prior to draw) Tobacco Abuse - Encourage Cessation - Consider low dose Nicotine patch Code Status: DNR DVT ppx: SCDs, protonix
[2018-08-09] MEDS: Folic Acid 1 MG TAB PO SCH (08:51)
[2018-08-09] MEDS: Multivitamin W/ Minerals 1 TAB PO SCH (08:51)
[2018-08-09] MEDS: Midodrine HCl 5 MG TAB PO SCH ×2 (09:09→14:40)
--- NOTE | 2018-08-09 11:42 | PRG ---
DATE OF SERVICE: 08/09/2018 SUBJECTIVE: Mr. Meza clinically is unchanged from yesterday. He is lucid, alert and oriented. I a m not certain that Mr. Almazan understands the gravity of his advanced liver disease. We are still wo rking on placement as he is refusing any offers of palliative care, hospice or home health care. In the interim, we will continue, though reduce his lactulose given that he has had 10 bowel movements i n the last 24 hours.
[2018-08-09 12:48] VITALS: BMI 24.5
--- NOTE | 2018-08-09 15:21 | PRG ---
DATE OF SERVICE: 08/09/2018 SUBJECTIVE: The patient was seen and examined, continued to maintain sustained clinical improvement. OBJECTIVE: Noted with the following, VITAL SIGNS: Afebrile, temperature 98.3, pulse 68, respiratory rate of 14, blood pressure 127/84, pu lse ox is 98%. HEENT: Unremarkable. CARDIOVASCULAR: First and second heart sounds were heard. RESPIRATORY: Clear to auscultation. DIGESTIVE: Revealed a benign abdomen with positive bowel sounds. EXTREMITIES: No peripheral edema. SKIN: No new gross rash. LYMPHATICS: No peripheral lymphadenopathy. LABORATORY INVESTIGATION: Showed a creatinine down to 2.7. IMPRESSION: 1. Acute kidney injury in the context of cardiorenal syndrome, improving. 2. End-stage liver disease. PLAN: 1. Continue renal supportive measures. 2. Further management to be dependent on the clinical course. 3. Outpatient Nephrology followup status post discharge recommended.
[2018-08-09 16:11] VITALS: BP 120/82; TEMP 98.6
--- NOTE | 2018-08-09 16:22 | PRG ---
DATE OF SERVICE: 08/09/2018 REASON FOR CONSULTATION: Cirrhosis with acute renal failure. SUBJECTIVE: Today, the patient states that he is doing well with no acute events or problems overnig ht; however, per review of his chart and per interview with nursing staff, he did have increased freq uency of bowel movements yesterday with holding of his lactulose yesterday due to this increased freq uency. Today, he has had approximately 1 bowel movement today and restarted his lactulose a little l ater on in the afternoon. Currently, he states that he is doing well with only some mild abdominal p ain in the lower abdominal quadrants, but this is unchanged from previous. He does have the drainage of some ascitic fluid via the paracentesis site that was obtained a couple days ago, but has been re latively unchanged as well. Currently, denies any nausea, vomiting, fevers, chills, GI bleeding, estuardo nophagia, or dysphagia. OBJECTIVE: VITAL SIGNS: Temperature 98.3, pulse 68, blood pressure 127/84, respiratory rate 14, satting 98% on room air. GENERAL: The patient is lying in bed, in no acute distress. Alert and oriented x4. CARDIOVASCULAR: Regular rate and rhythm. LUNGS: Clear to auscultation bilaterally. ABDOMEN: Normoactive bowel sounds. Mild tenderness to palpation in the lower abdominal quadrants wi th moderate to significant distention of the abdomen, as well as positive shifting dullness consisten t with ascites. EXTREMITIES: 1+ bilateral lower extremity edema extending the bilateral knees. LABORATORY DATA: CBC with a white blood cell count of 4.5, hemoglobin 7.9, hematocrit 24.3, platelet s 82. Chemistry with a sodium 140, potassium 3.5, chloride 108, CO2 23, BUN 29, creatinine 2.77, glu cose 106, AST 24, ALT 10, alkaline phosphatase 33, total bilirubin 3.3 with a calculated MELD score o f 28. IMAGING DATA: No current GI imaging is available for review. ASSESSMENT AND PLAN: The patient is a 53-year-old male with past medical history of chronic hepatiti s C and cirrhosis complicated by ascites, lower extremity edema and hepatic encephalopathy, presentin g initially with worsening renal insufficiency that was concerning for hepatorenal syndrome, but has been since responding to treatment. Hepatorenal syndrome type 1/acute renal failure: The patient initially presented with worsening jocelyne l function over the past 1-2 weeks prior to admission while on diuretic therapy with furosemide, spir onolactone, and bumetanide. However, during the course of this hospitalization, he has improved with administration of midodrine, octreotide and albumin infusions with the discontinuation of the octreo tide and albumin over the last 24-48 hours. He continues to have down trending creatinine today with his creatinine near baseline when compared to being seen in the GI clinic as an outpatient. RECOMMENDATIONS: 1. Continue to hold any diuretics given recent acute failure with restarting them as an outpatient i n the GI clinic at a later date. 2. We would continue the midodrine until discharge, but discontinue on discharge. 3. Continue avoid any NSAIDs or potentially renal toxic medications. Ascites: The patient is presenting with significant hepatic ascites for which he underwent paracente sis during this hospitalization with approximately 6 liters removed. He continues to have significan t abdominal distention and positive shifting dullness consistent with continued ascites; however, zurdo pina in back on diuretic therapy would not be recommended at this time given his recent acute renal fa ilure. RECOMMENDATIONS: 1. We would continue to hold diuretics in light of recent acute renal failure. 2. We would most likely place the patient on more frequent paracenteses for drainage of this fluid. Hepatic encephalopathy. The patient had been responding well during this hospitalization with lactul ose 30 mL b.i.d., but yesterday did have an episode of increased watery bowel movements while on this regimen. In the isolated picture, this could have been due to increase of his lactulose, but during this hospitalization and significant exposures, infectious diarrhea is always a possibility. Given his improvement today in terms of stool frequency, an infectious etiology is unlikely, but I wo uld remain with a low index of suspicion. RECOMMENDATIONS: 1. We would continue lactulose 30 mL b.i.d., but if he continues to have greater than 4 bowel moveme nts per day, we would consider decreasing to either 15 mL b.i.d. or 30 mL in the morning and 15 mL in the afternoon. 2. Cirrhosis. 3. The patient has a history of cirrhosis with decompensated liver disease, now with a calculated ME LD score of 28 and Child-Burns classification C. At this point, he has been evaluated at least initia lly by transplant center and denied further evaluation due to financial reasons. Given his poor prog nosis with end-stage liver disease and lack of more definitive care in the form of liver transplant u navailable at this time. Consultation of the palliative care team is reasonable. RECOMMENDATIONS: 1. Given his inability to be evaluated for liver transplantation, hospice or palliative care consult ation appropriate given his poor prognosis, despite decreasing MELD score. 2. We will follow him up in the outpatient clinic for further monitoring of his end-stage liver dise ase. We will sign off at this time given improvement of his renal status and unchanged end-stage liver dis ease characteristics. Please call with any additional questions. If the patient is to be discharged over the weekend, I would recommend followup in the GI clinic within the next 1-2 weeks for further management of his chronic liver disease.
--- NOTE | 2018-08-10 03:14 | DIS-2 ---
DATE OF ADMISSION: 08/02/2018 DATE OF DISCHARGE: 08/09/2018 RESIDENT PHYSICIAN: Diamante Johnsno MD ADMITTING ATTENDING: Bettie Negro M.D. DISCHARGE ATTENDING: Chalo Reis MD CONSULTATIONS: 1. Gastroenterology, Dr. Cueto, 08/03/2018. 2. Nephrology, Dr. Ritchie, 08/02/2008. PROCEDURES: 1. Acute abdomen series on 08/02/2018. Impression: Ascites. 2. Abdomen ultrasound on 08/04/2018. Impression: Moderate volume of abdominal ascites. 3. On 08/05/2018, paracentesis ultrasound. Impression: Technically successful ultrasound guided paracentesis. Six liters of fluid was removed. PRIMARY DIAGNOSES: 1. Acute renal failure secondary to hepatorenal syndrome type 1. 2. Cirrhosis secondary to alcohol abuse and hepatitis C and end-stage liver disease. SECONDARY DIAGNOSES: 1. Ascites. 2. Hyperkalemia. 3. Hypokalemia. 4. Hepatic encephalopathy. 5. Normocytic anemia. 6. Hyponatremia. 7. Alcohol abuse. 8. Tobacco abuse. DISCHARGE MEDICATIONS: 1. Folic acid 1 mg p.o. q.a.m. 2. Hydroxyzine 50 mg p.o. q.i.d. p.r.n. for itching. 3. Pantoprazole 40 mg p.o. q.a.m. 4. Hydrocodone/ibuprofen 10 mg/200 mg tablet. 5. IBUDONE 1 tab p.o. q.6 hours p.r.n. for pain. 6. Lactulose 30 grams p.o. b.i.d. 7. Multivitamin 1 tab p.o. daily. 8. Thiamine 100 mg p.o. daily. DISCONTINUED MEDICATIONS: Spironolactone, Midodrine, albumin. HISTORY OF PRESENT ILLNESS AND HOSPITAL COURSE: Mr. Almazan is a 53-year-old male with past medical history of cirrhosis secondary to hepatitis C and alcohol abuse who presented to the ED from clinic with a 1-week history of weakness, worsening tremors, abdominal pain, nausea, vomiting. There was concern for SBP versus hepatorenal symptoms. He was transferred via EMS to the ED. The patient endorsed body aches. The patient follows with GI outpatient and has scheduled therapeutic paracentesis with the most recent being on 07/29, they removed 6 liters. Prior to this, his last paracentesis was 2 months. He has a history of drinking one pint of liquor per day, but reports his last drink was 14 days before his admission. He reported history of withdrawal symptoms, but no history of seizures. He denied fever or chills. He is accompanied by his friend who reported his mental status is at baseline, but he seems much more fatigued than usual. In the ED, he received morphine 6 mg, Zofran 8 mg IV. The patient was found to have acute renal failure secondary to hepatorenal syndrome type 1. Dr. iRtchie was consulted for Nephrology. He was placed on IV fluids and instructed to follow a low-salt diet. His creatinine improved from 10.69-2.77. We avoided nephrotoxic medications including NSAIDs and stopped his diuretics during his stay. Patient has end-stage liver disease. His MELD on discharge was 28, which was improved from during his stay. The patient sees Dr. Cueto as an outpatient. He was given a therapeutic paracentesis on 08/[address] Sanabria who removed 6 liters of fluid. His paracentesis fluid studies appear to be negative for SBP. He was continued on midodrine until discharge, his albumin was stopped 2 days prior to discharge. Patient was not a candidate for transplant in [place] due to the financial limitations. Patient was put on lactulose to help remove some of the ammonia from his bloodstream. He was discharged with instructions to continue on his lactulose. Patient's hyperkalemia was fairly difficult to manage. His spironolactone was discontinued. The patient went from hyperkalemia to hypokalemia. His potassium was replaced. His potassium on discharge was 3.5. Patient will need followup BMP to check his potassium and to continue taking his potassium medications as an outpatient. The patient had hyponatremia that resolved. His sodium on discharge was 140. DISPOSITION: Stable. DISCHARGE INSTRUCTIONS: 1. Location: Home. 2. Diet: Heart healthy, low sodium renal diet. 3. Activity: As tolerated. 4. Follow up with Dr. Ritchie in 3-4 weeks, Dr. Parisi in 7 days, Jakob Cueto in 1-2 weeks. [facility]
== END 2018-08-09 21:32 | disposition home or self-care (01) | DRG 441 ==
LOC: ERS 17:37 → 2NO 19:35
PROVIDERS: ADMIT Family Medicine; ATTEND Family Medicine
PROC: 0W9G3ZZ Drainage of Peritoneal Cavity, Percutaneous Approach (ICD-10-PCS; principal; 2018-08-05)
DX: K76.7 Hepatorenal syndrome (principal); K85.90 Acute pancreatitis without necrosis or infection, unspecified; N17.9 Acute kidney failure, unspecified; E87.1 Hypo-osmolality and hyponatremia; E87.2 Acidosis; F17.210 Nicotine dependence, cigarettes, uncomplicated; E87.5 Hyperkalemia; K70.31 Alcoholic cirrhosis of liver with ascites; F10.10 Alcohol abuse, uncomplicated; D64.9 Anemia, unspecified; Z66 Do not resuscitate; K72.90 Hepatic failure, unspecified without coma; B18.2 Chronic viral hepatitis C; E87.6 Hypokalemia
CPT/HCPCS: 36415; 49083; 51702; 74022; 76705; 80053; 80306; 81003; 82042; 82140; 83690; 83735; 84100; 84550; 85025; 85060; 85610; 85730; 87070; 87205; 89051; 90471; 90686; 90732; 96374; 96375; G0008; G0009; J2001; J2060; J2270; J2354; J2405; J3411; J7050; J7070; P9047

== ENCOUNTER 2018-09-02 09:38 | Emergency (ER) | payer OTHER ==
[2018-09-02 10:47] LABS: #Eosinphils 0.2 thou/uL (0.0-0.7); #Lymphocytes 0.9 thou/uL (1.20-3.40); #Monocytes 0.5 thou/uL (0.11-0.59); #Neutrophils 3.3 thou/uL (1.40-6.50); %Eosinophils 5.1 % (0.0-10.0); %Monocytes 9.3 % (0.0-10.0); %Neutrophils 66.6 % (42.0-75.0); Hemoglobin 9.2 g/dL (14.0-18.0); Mean Corpuscular HGB CONC 31.9 g/dL (32.0-36.0); Mean Corpuscular Hemoglobin 29.7 pg (27.0-31.0); Mean Corpuscular Volume 93.1 fL (78.0-98.0); Mean Platelet Volume 8.4 fL (7.4-10.4); Platelet Count 97 thou/uL (130-400); RBC Distribution Width 15.7 % (11.5-14.5); Red Blood Cell (RBC) Count 3.08 mill/uL (4.70-6.10); White Blood Cell (WBC) Count 4.9 thou/uL (4.8-10.8)
[2018-09-02 11:03] LABS: ALT (SGPT) 15 U/L (8-55); AST (SGOT) 30 U/L (5-34); Albumin 3.1 g/dL (3.5-5.0); Alkaline Phosphatase 55 U/L (40-150); Anion Gap 16 mmol/L (10-20); BUN (Urea Nitrogen) 26 mg/dL (8.4-25.7); Bilirubin, Total 2.3 mg/dL (0.2-1.2); Calc. Creatinine Clearance 0 mL/min (70-130); Carbon Dioxide 17 mmol/L (22-29); Chloride 105 mmol/L (98-107); Estimated GFR-MDRD 16; Globulin 4.2 g/dL (2.4-3.5); Glucose 104 mg/dL (70-105); Potassium 4.2 mmol/L (3.5-5.1); Protein, Total 7.3 g/dL (6.0-8.3); Sodium 134 mmol/L (136-145)
[2018-09-02 11:26] LABS: INR-International Normal Ratio 1.7; PTT 35.5 SEC (22.9-36.1); Prothrombin Time 19.8 SEC (12.0-14.7)
[2018-09-02] MEDS ORDERED: HYDROcodone/Acetaminophen 10/325 mg Tablet ONE (11:54)
[2018-09-02] MEDS ORDERED: Albumin 25% 25 GM/100 ML BOT IVPB SCH (12:45)
[2018-09-02 13:20] LABS: Bilirubin Small (Negative); Blood, Urine Trace (Negative); Clarity TURBID (Clear); Glucose, Urine (Dipstick) Negative (Negative); Leukocyte Large (Negative); Nitrite Negative (Negative); Protein, Urine (Dipstick) Trace mg/dL (Neg-Trace); Specific Gravity, Urine 1.023 (1.002-1.036); Urobilinogen 0.2 mg/dL (0.2-1.0)
[2018-09-02 13:22] LABS: Bacteria/HPF 4+ HPF (None Seen); Hyaline Casts/LPF 0-3 HYALINE CAST LPF (0-3 Hyaline); Pathc Cast-AUWi Flag 0.14 (0-2.49); Squamous Epithelial None Seen HPF (0-3)
[2018-09-02 13:23] LABS: Yeast-AUWi Flag 52.7 (0-25.0)
[2018-09-02 13:29] LABS: Yeast-All Forms None Seen HPF (None Seen)
--- NOTE | 2018-09-06 17:04 | EKG ---
Test Reason : Blood Pressure : / mmHG Vent. Rate : 064 BPM Atrial Rate : 064 BPM P-R Int : 186 ms QRS Dur : 086 ms QT Int : 450 ms P-R-T Axes : 021 025 037 degrees QTc Int : 464 ms Normal sinus rhythm Normal ECG Confirmed by KARON VERDE ([id number]), clinical editor SLICK TYLER ([id number]) on 09/06/2018 5:04:18 PM Referred By: Confirmed By:KARON VERDE
== END 2018-09-02 14:33 | disposition home or self-care (01) ==
LOC: ERS 09:38
DX: N17.9 Acute kidney failure, unspecified (principal); I50.9 Heart failure, unspecified; F41.9 Anxiety disorder, unspecified; F17.210 Nicotine dependence, cigarettes, uncomplicated; Z79.899 Other long term (current) drug therapy
CPT/HCPCS: 36415; 80053; 81003; 81015; 82140; 83735; 83880; 85025; 85610; 85730; 93005; 96365; P9047